=== PATIENT | female | born 2005 | race African-American/Black ===

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

== ENCOUNTER 2023-05-12 19:02 | Emergency (ER) | payer OTHER, SELFPAY | END 2023-05-12 19:05 | disposition left against medical advice (07) | DX: Z53.21 Procedure and treatment not carried out due to patient leaving prior to being seen by health care provider (principal) | CPT/HCPCS: 99199 ==

== ENCOUNTER 2023-07-05 10:38 | Emergency (ER) | payer OTHER, SELFPAY ==
[2023-07-05 10:39] VITALS: BP 114/74; PULSE 90; RESP 16; TEMP 36.4; O2SAT 100
[2023-07-05 11:12] LABS: Basophils Percent Auto 0.4 % (0.2-1.2); Eosinophils Absolute Auto 0.1 K/mm3 (0-0.3); Eosinophils Percent Auto 0.9 % (0-4.4); Hematocrit 41.7 % (37.0-47.0); Immature Granulocyte Absolute 0.02 K/mm3 (0.00-0.031); Immature Granulocyte Percent A 0.2 % (0-0.5); Lymphocytes Absolute Auto 2.08 K/mm3 (0.9-3.2); Lymphocytes Percent Auto 22.1 % (18.3-44.2); Mean Corpuscular HGB Conc 31.2 g/dl (32-36); Mean Corpuscular Hemoglobin 27.8 pg (26-34); Mean Corpuscular Volume 89.1 fl (80-100); Mean Platelet Volume 9.5 fl (7.4-10.4); Monocytes Absolute Auto 0.7 K/mm3 (0.1-0.6); Monocytes Percent Auto 7.9 % (2.6-8.5); Neutrophils Absolute Auto 6.5 K/mm3 (1.3-6.7); Neutrophils Percent Auto 68.5 % (45.5-73.1); Platelet Count Result 396 k/mm3 (150-375); Red Blood Count 4.68 M/mm3 (4.2-5.4); White Blood Count 9.4 K/mm3 (4.5-10.0)
[2023-07-05 11:16] LABS: Appearance Urine Clear (Clear); Bacteria Urine None Seen /hpf; Bilirubin Urine Negative (Negative); Blood Urine Negative (Negative); Color Urine Yellow (Yellow); Glucose Urine UA Negative (Negative); Ketones Urine Negative (Negative); Leukocyte Esterase Ur Trace LEU/UL (Negative); Nitrate Urine Negative (Negative); Non Pathogenic Casts 0-2; Protein Urine Negative (Negative); RBC Urine 0-2 /hpf (0-2); Specific Grav Ur 1.025 (1.001-1.035); Squamous Epithelial Cell Urine Occasional /hpf (Few); Urobilinogen Urine 0.2 mg/dL (<2.0); WBC Urine 0-5 /hpf; pH Urine 5.5 (5.0-9.0)
[2023-07-05 11:23] LABS: Add Urine Microscopic? YES
[2023-07-05 11:24] LABS: Alanine Aminotransferase 22 U/L (6-35); Albumin Level 4.7 g/dL (3.5-5.1); Alkaline Phosphatase 71 U/L (38-126); Anion Gap 5 mmol/L (8-16); Aspartate Amino Transferase 30 U/L (14-36); Bilirubin,Total 1.1 mg/dL (0.2-1.3); Blood Urea Nitrogen 11 mg/dL (7-17); Calcium 9.2 mg/dL (8.4-10.2); Carbon Dioxide 30 mmol/L (22-30); Chloride 105 mmol/L (98-107); Estimated CRCL calculation 87 ml/min; Estimated Glomerular Filt Rate > 60; Glucose 87 mg/dL (65-110); Lipase 60 U/L (23-300); Potassium 3.5 mmol/L (3.4-5.0); Sodium 140 mmol/L (137-145)
--- NOTE | 2023-07-05 11:24 | ED.NAVMDI ---
HPI - Nausea/Vomiting/Diarrhea General Chief complaint: Nausea/Vomiting/Diarrhea Stated complaint: Nausea,Vomiting,Diarrhea felt hot Time Seen by Provider: 07/05/23 10:53 History of Present Illness HPI Narrative: 18-year-old female reports for evaluation for nausea and vomiting since this morning. Patient states she woke up around 6 AM and has had 4 episodes of vomiting with 2 episodes of diarrhea. She states she is unable to eat anything without vomiting. States she felt warm earlier but did not take her temperature. Denies chest pain, shortness of breath, abdominal pain, cough or congestion, dysuria or hematuria, urinary frequency or urgency. States she was in bed last night feeling fine. Related Data Allergies Allergy/AdvReac Type Severity Reaction Status Date / Time No Known Allergies Allergy Verified 07/05/23 10:56 Review of Systems Review of Systems: CONSTITUTIONAL: Denies fever, chills EYES: Denies visual changes, redness, or discharge. ENT: Denies rhinorrhea, congestion, sore throat, or otalgia. CARDIOVASCULAR: Denies chest pain, palpitations, or edema. RESPIRATORY: Denies cough or dyspnea. GASTROINTESTINAL: See HPI GENITOURINARY: Denies dysuria or hematuria. SKIN: Denies rash or itching. MUSCULOSKELETAL: Denies back pain, joint pain, or myalgia. NEUROLOGIC: Denies headache, numbness, dizziness, or weakness. PSYCHIATRIC: Denies anxiety or depression. [facility] Past Medical History Medical History Healthy adult Social History Social History Social History: Denies use of drugs or alcohol Exam Narrative: GENERAL: Well-appearing, in no acute distress. Patient resting comfortably in exam bed. She is pleasant and conversational. HEAD: Normocephalic EYES: PERRLA ENT: Nares clear. Mucous membranes moist. Oropharynx without tonsillar hypertrophy exudate or other lesions. NECK: Supple. CHEST: No respiratory distress. Clear to auscultation, no adventitious breath sounds. HEART: Regular rate and rhythm. No murmur heard. Normal peripheral pulses. ABDOMEN: Soft, nontender, normal active bowel sounds. No CVA tenderness. No overlying skin changes. EXTREMITIES: Normal range of motion. No edema. SKIN: Warm, dry, no rash. NEURO: No focal deficits. Alert and oriented x3. PSYCH: Normal mood and affect. Course Vital Signs Vital signs: Vital Signs Temperature 97.5 F L 07/05/23 10:39 Pulse Rate 90 07/05/23 10:39 Respiratory Rate 16 07/05/23 10:39 Blood Pressure 114/74 07/05/23 10:39 Pulse Oximetry 100 07/05/23 10:39 Temperature 97.5 F L 07/05/23 10:39 Pulse Rate 90 07/05/23 10:39 Respiratory Rate 16 07/05/23 10:39 Blood Pressure 114/74 07/05/23 10:39 Pulse Oximetry 100 07/05/23 10:39 MDM - Nausea/Vomiting/Diarrhea MDM Narrative Medical decision making narrative: 18-year-old female reports for evaluation for nausea, vomiting and diarrhea since this morning. See HPI for further history. Vitals are stable and she is afebrile. She is well-appearing on exam. Abdomen is soft and nontender. Labs are largely unremarkable. test negative. UA not consistent with UTI. Patient received fluids and Zofran with improvement. She is tolerating p.o. intake in the ED. Plan to discharge her home with p.o. Zofran and close PCP follow-up. Strict ED return precautions discussed. She is agreeable with the plan verbalized understanding. Discharged in stable condition. Medical Records Attestation: I reviewed the patient's medical records. Lab Data Attestation: I reviewed the patient's lab results. 07/05/23 11:05 07/05/23 11:05 Labs: Lab Results 07/05/23 Range/Units 11:05 WBC 9.4 (4.5-10.0) K/mm3 RBC 4.68 (4.2-5.4) M/mm3 Hgb 13.0 (12.0-15.0) g/dL Hct 41.7 (37.0-47.0) % MCV 89.1 (80-100) fl MCH 27.8 (2
[2023-07-05] MEDS: ONDANSETRON INJ 4 MG/2 ML VIAL IV PUSH (12:02)
[2023-07-05] MEDS: SODIUM CHLORIDE 0.9% IV 1,000 ML 999 ML IV CONT (12:03)
== END 2023-07-05 13:05 | disposition home or self-care (01) ==
PROVIDERS: Emergency Provider Physician Assistant
DX: K52.9 Noninfective gastroenteritis and colitis, unspecified (principal)
CPT/HCPCS: 36415; 80053; 81001; 81025; 83690; 83735; 85025; 96374; 99284; J2405; J7030

== ENCOUNTER 2023-07-23 16:33 | Emergency (ER) | payer OTHER, SELFPAY ==
[2023-07-23 16:44] VITALS: BP 122/65; PULSE 80; RESP 16; TEMP 36.7; O2SAT 100
--- NOTE | 2023-07-23 18:23 | PC.NURSE ---
Pt called x2 for triage, no response.
== END 2023-07-23 19:20 | disposition left against medical advice (07) ==
LOC: ANHED 18:48
DX: R22.43 Localized swelling, mass and lump, lower limb, bilateral (principal)
CPT/HCPCS: 99199

== ENCOUNTER 2024-05-10 22:52 | Emergency (ER) | payer OTHER, SELFPAY ==
--- NOTE | ~2024-05-10 | CT_ITS ---
CT of the Abdomen and Pelvis: Indication: Abdominal pain Technique: 2.5 mm axial scans were obtained through the abdomen and pelvis following intravenous adm inistration of 100 cc of Omnipaque 350. Dose reduction technique was used on this scan by utilizing a utomated exposure control and iterative reconstruction technique. The dose-length product (DLP) was 6 58.67 mGy-cm. Findings: Scans through the lung bases are unremarkable. The liver, spleen, pancreas, gallbladder, and adrenal glands are within normal limits. There are patc hy areas of decreased parenchymal enhancement of both kidneys, right worse than left, compatible with bilateral pyelonephritis. No hydronephrosis or abscess. No evidence of aortic aneurysm. No lymphade nopathy. No bowel obstruction or bowel wall thickening. There is no evidence to suggest acute appendicitis. Images through the pelvis were performed. Urinary bladder unremarkable. No adnexal mass evident. Trac e free fluid present in the pelvis. Impression: Bilateral pyelonephritis. No hydronephrosis or abscess. Reviewed, dictated and finalized at [facility]. Impression: Bilateral pyelonephritis. No hydronephrosis or abscess.
[2024-05-10 22:57] VITALS: BP 133/85; PULSE 92; RESP 18; TEMP 36.4; O2SAT 100
[2024-05-11 00:01] LABS: Basophils Percent Auto 0.2 % (0.2-1.2); Eosinophils Absolute Auto 0.2 K/mm3 (0-0.3); Eosinophils Percent Auto 1.9 % (0-4.4); Hematocrit 42.1 % (37.0-47.0); Hemoglobin 13.7 g/dL (12.0-15.0); Immature Granulocyte Absolute 0.02 K/mm3 (0.00-0.031); Immature Granulocyte Percent A 0.2 % (0-0.5); Lymphocytes Absolute Auto 2.24 K/mm3 (0.9-3.2); Lymphocytes Percent Auto 26.4 % (18.3-44.2); Mean Corpuscular HGB Conc 32.5 g/dl (32-36); Mean Corpuscular Hemoglobin 28.7 pg (26-34); Mean Corpuscular Volume 88.3 fl (80-100); Mean Platelet Volume 9.5 fl (7.4-10.4); Monocytes Absolute Auto 0.8 K/mm3 (0.1-0.6); Monocytes Percent Auto 9.1 % (2.6-8.5); Neutrophils Absolute Auto 5.3 K/mm3 (1.3-6.7); Neutrophils Percent Auto 62.2 % (45.5-73.1); Platelet Count Result 280 k/mm3 (150-375); Red Blood Count 4.77 M/mm3 (4.2-5.4); Red Cell Distribution Width 12.8 % (11.5-14.5); White Blood Count 8.5 K/mm3 (4.5-10.0)
[2024-05-11 00:01] LABS: BEDSIDEPREGUCG Negative
[2024-05-11 00:02] LABS: BEDSIDEPREGUCG Negative
[2024-05-11 00:19] LABS: Alanine Aminotransferase 14 U/L (6-35); Albumin Level 4.3 g/dL (3.5-5.1); Alkaline Phosphatase 61 U/L (38-126); Anion Gap 7 mmol/L (4-12); Aspartate Amino Transferase 25 U/L (14-36); Bilirubin,Total 0.5 mg/dL (0.2-1.3); Blood Urea Nitrogen 12 mg/dL (7-17); Calcium 8.8 mg/dL (8.4-10.2); Carbon Dioxide 30 mmol/L (22-30); Chloride 103 mmol/L (98-107); Estimated CRCL calculation 77 ml/min; Estimated Glomerular Filt Rate > 60; Glucose 89 mg/dL (65-110); Lipase 76 U/L (23-300); Potassium 3.5 mmol/L (3.4-5.0); Sodium 140 mmol/L (137-145)
[2024-05-11 00:26] LABS: Add Urine Microscopic? YES; Appearance Urine Clear (Clear); Bacteria Urine None Seen /hpf; Bilirubin Urine Negative (Negative); Blood Urine Trace (Negative); Color Urine Yellow (Yellow); Glucose Urine UA Negative (Negative); Ketones Urine Negative (Negative); Leukocyte Esterase Ur Trace LEU/UL (Negative); Nitrate Urine Negative (Negative); Non Pathogenic Casts 0-2; Protein Urine Trace mg/dL (Negative); Specific Grav Ur 1.012 (1.001-1.035); Squamous Epithelial Cell Urine Occasional /hpf (Few); WBC Urine 0-5 /hpf (0-3); pH Urine 7.5 (5.0-9.0)
[2024-05-11] MEDS: ONDANSETRON INJ 4 MG/2 ML VIAL IV PUSH (00:48)
[2024-05-11] MEDS: KETOROLAC 15 MG/ML VIAL (*BKC) IV PUSH (00:48)
[2024-05-11] MEDS: SODIUM CHLORIDE 0.9% IV 1,000 ML 999 ML IV CONT (00:48)
[2024-05-11] MEDS: BUPivacaine HCL 0.25% PF 30 ML VIAL 10 ML INFILTRATE (01:42)
--- NOTE | 2024-05-11 02:21 | ED.GENADULT ---
HPI - General Adult General Chief complaint: Abdominal Pain Stated complaint: abd pain Time Seen by Provider: 05/10/24 23:51 History of Present Illness HPI narrative: This is a 19-year-old female presenting with 2 complaints. The 1st complaint is right-sided abdominal pain. Has been going on off the last 2 weeks. It is sharp and achy. It is nonradiating 9 out 10 intensity and comes and goes. She has never had pain like this before there are no exacerbating alleviating factors. It is associated with episode of nausea and vomiting. She notes no relation to food. She denies fevers chills chest pain difficulty breathing or diarrhea. No dysuria or vaginal discharge. Second complaint is a painful lump in her thigh. Patient has a history of pilonidal and axillary abscesses. She thinks she is developing another abscess. Related Data Allergies Allergy/AdvReac Type Severity Reaction Status Date / Time No Known Allergies Allergy Verified 07/05/23 10:56 [facility] Past Medical History Medical History Healthy adult Social History Social History Social History: Denies use of drugs or alcohol Exam Narrative: APPEARANCE: No apparent distress. Head: atraumatic. EYES: EOMI, NOSE: Atraumatic NECK: Trachea midline RESPIRATORY: No increased rate of breathing CARDIOVASCULAR: RRR, ABDOMINAL: Soft nontender no guarding rebound no CVA tenderness MUSCULOSKELETAl: No obvious deformities NEURO: Alert. Moving 4/4 extremities SKIN:: 1 cm x 2 cm fluctuant mass in the inside of her right thigh no surrounding cellulitis PSYCHIATRIC: Normal affect Course Vital Signs Vital signs: Vital Signs Temperature 97.6 F 05/10/24 22:57 Pulse Rate 92 05/10/24 22:57 Respiratory Rate 18 05/10/24 22:57 Blood Pressure 133/85 05/10/24 22:57 Pulse Oximetry 100 05/10/24 22:57 Oxygen Delivery Room Air 05/10/24 22:57 Temperature 97.6 F 05/10/24 22:57 Pulse Rate 92 05/10/24 22:57 Respiratory Rate 18 05/10/24 22:57 Blood Pressure 133/85 05/10/24 22:57 Pulse Oximetry 100 05/10/24 22:57 Oxygen Delivery Room Air 05/10/24 22:57 Procedures Abscess I/D lower extremity: Date of Incision: 05/11/24 Local Anesthetic: lidocaine 1% and with epi Amount of anesthesia used (mL): 5 Technique: incised with #11 blade and probed loculations Amount of fluid expressed (mL): 3 Irrigation: Yes Packing used?: none I&D Results: Pus and Blood Medical Decision Making MDM Narrative Medical decision making narrative: -Course: 19-year-old presenting with right upper quadrant pain. Laboratory studies all within normal limits. Urine not indicative of infection. CT was read by stat read as a patchy nephrogram of the right kidney consistent with pyelonephritis. She does not have right CVA tenderness, fevers a white count or white blood cells in her urine. Clinically the patient does not have pyelonephritis. Pain improved with pain medication. On re-evaluation vital signs still stable on abdominal exam is benign. She will be discharged follow-up with her primary care physician. Patient's abscess was drained. Patient follow-up with PCP. Given return precautions -DDX includes but is not limited to: Gallbladder pathology, gastroenteritis, gastritis, colitis, appendicitis, kidney stone, pyelonephritis -Co-morbidities complicating care: Recurrent abscesses -Independent interpretation of studies: Labs reviewed, imaging reviewed -Procedures: incision and drainage of a right groin abscess using 11 blade stab incision. Loculations were broken up with hemostat. Procedures tolerated well. -Interventions: Zofran, Toradol, 2L normal saline -Shared decision making / Disposition: Discharge -RX Motrin Tylenol Vital Signs Vital Signs: Vital Signs Temperature 97.6 F 05/10/24
[2024-05-11 04:01] VITALS: BP 137/74; PULSE 67; RESP 18; O2SAT 100
== END 2024-05-11 04:03 | disposition home or self-care (01) ==
PROVIDERS: Emergency Provider Emergency Medicine
DX: R10.11 Right upper quadrant pain (principal); L02.415 Cutaneous abscess of right lower limb
CPT/HCPCS: 10060; 36415; 74177; 80053; 81001; 81025; 83690; 85025; 96361; 96374; 96375; 99284; J1885; J2405; J7030; Q9967

== ENCOUNTER 2024-08-15 15:03 | Emergency (ER) | payer OTHER, SELFPAY ==
--- NOTE | ~2024-08-15 | US_ITS ---
EXAMINATION: US OB <= 14 weeks fetus INDICATION: 9w2d by LMP 06/11; r/o ectopic; no prior imaging TECHNIQUE: Sonography of the pelvis was performed by transabdominal techniques. COMPARISON: None. RESULT: Uterus: 9.8 x 7.1 x 7.6 cm. Anteverted. Homogenous myometrium. Intrauterine gestational sac: Single present. Yolk sac: 0.5 cm. Embryo: Single present. [place] rump length: 2.91 cm, corresponding gestational age 9 weeks, 5 days. Gestational heart rate: 161 bpm. Subgestational hematoma: Absent . Right ovary: 3.2 x 1.9 x 2.2 cm. Vascular flow is present. No adnexal mass. Left ovary: 3.3 x 1.0 x 1.8 cm. Vascular flow is present. No adnexal mass. Pelvis free fluid: None. IMPRESSION: Single, live intrauterine gestation. Estimated Gestational Age: 9 weeks, 5 days by crown rump length. VIDAL by ultrasound 03/15/2025. Mild tachycardia to 161 bpm. Reviewed, dictated and finalized at location K. LANGUAGE INTERPRETER IMPRESSION: Single, live intrauterine gestation. Estimated Gestational Age: 9 weeks, 5 days by crown rump length. VIDAL by ultras ound 03/15/2025. Mild tachycardia to 161 bpm.
[2024-08-15 15:12] VITALS: BP 139/68; PULSE 95; RESP 14; TEMP 36.6; O2SAT 100
[2024-08-15 17:58] VITALS: BP 131/82; PULSE 104; RESP 18; O2SAT 96
[2024-08-15 18:03] LABS: Basophils Percent Auto 0.3 % (0.2-1.2); Eosinophils Percent Auto 0.2 % (0-4.4); Hematocrit 42.8 % (37.0-47.0); Hemoglobin 14.4 g/dL (12.0-15.0); Immature Granulocyte Absolute 0.05 K/mm3 (0.00-0.031); Immature Granulocyte Percent A 0.4 % (0-0.5); Lymphocytes Percent Auto 13.8 % (18.3-44.2); Mean Corpuscular HGB Conc 33.6 g/dl (32-36); Mean Corpuscular Hemoglobin 28.7 pg (26-34); Mean Corpuscular Volume 85.4 fl (80-100); Monocytes Absolute Auto 0.7 K/mm3 (0.1-0.6); Monocytes Percent Auto 5.5 % (2.6-8.5); Neutrophils Absolute Auto 9.8 K/mm3 (1.3-6.7); Neutrophils Percent Auto 79.8 % (45.5-73.1); Platelet Count Result 364 k/mm3 (150-375); Red Blood Count 5.01 M/mm3 (4.2-5.4); Red Cell Distribution Width 13.5 % (11.5-14.5); White Blood Count 12.3 K/mm3 (4.5-10.0)
--- NOTE | 2024-08-15 18:12 | ED_ITS ---
HPI - General Adult General Chief complaint: Abdominal Pain <Gary Mares PA-C - Last Filed: 08/15/24 18:13> Stated complaint: abd pain <Gary Mares PA-C - Last Filed: 08/15/24 18:13> Time Seen by Provider: 08/15/24 17:45 <Gary Mares PA-C - Last Filed: 08/15/24 18:13> Focused HPI: This is a 19-year-old female who presents to the ED for chief complaint of abdominal pain over the past several days. Reports that she thinks she may be with last menstrual period being 06/16/2024. Reports that she does have pelvic pain and pressure as well as upper abdominal pain. Sometimes the pain radiates to flanks. Does not yet have a OB and this would be her 1st . Denies fevers, chills, vaginal discharge, concern for STD, vaginal bleeding, urinary symptoms GENERAL: Well-appearing, well-nourished, and in no acute distress. HEAD: Normocephalic, atraumatic. CHEST: Clear to auscultation. No respiratory distress. HEART: Regular rate and rhythm. NEURO: Alert and oriented x3. Patient screened in triage and initial orders placed. Additional care and disposition to be based upon diagnostic testing and treatment. <Gary Mares PA-C - Last Filed: 08/15/24 18:13> Source: patient <Gary Mares PA-C - Last Filed: 08/15/24 18:13> Mode of arrival: ambulatory <Gary Mares PA-C - Last Filed: 08/15/24 18:13> Limitations: no limitations <Gary Mares PA-C - Last Filed: 08/15/24 18:13> History of Present Illness HPI narrative: Agree with above with the following additions/Corrections. Patient reports left-sided abdominal pain in the upper and lower quadrants occurring for the past 1 week. She has had nausea but no vomiting. Denies diarrhea, constipation, or bleeding. She denies any vaginal bleeding or discharge though she does report vaginal pain. LMP 06/11/24 - 06/16/24. She endorses breast swelling and increased fatigue. She took a home test on 07/18/2024 when her menstrual period not begin. She otherwise has not seen OB Gyne in has never established with 1 previously. This would make her a . Last oral intake was today. She does not have an appetite. She is not on anticoagulation. She denies dysuria or hematuria although she has had urinary frequency. No fevers or chills. She has not been taking anything for pain at home. <Julianne Rosales MD - Last Filed: 08/17/24 16:04> Related Data Allergies/adverse reactions: Allergies Allergy/AdvReac Type Severity Reaction Status Date / Time No Known Allergies Allergy Verified 07/05/23 10:56 <Gary Mares PA-C - Last Filed: 08/15/24 18:13> [facility] Past Medical History Medical History: Medical History Healthy adult <Gary Mares PA-C - Last Filed: 08/15/24 18:13> Social History Social History: Social History Social History: Denies use of drugs or alcohol <Gary Mares PA-C - Last Filed: 08/15/24 18:13> Exam 2 Narrative: GENERAL: Well-appearing, well-nourished, and in no acute distress. HEAD: Normocephalic, atraumatic. EYES: Non injected, non icteric ENT: Nares clear, no rhinorrhea or epistaxis. NECK: Supple. CHEST: Speaking in full sentences. No respiratory distress. HEART: Regular rate and rhythm. . ABDOMEN: Soft, nondistended. Nontender to palpation throughout. No rigidity or guarding. Not peritoneal. EXTREMITIES: Normal range of motion. No lower extremity edema. SKIN: Warm, dry, no rash. NEURO: No focal deficits. Alert and oriented x3. PSYCH: Normal mood and affect. <Julianne Rosales MD - Last Filed: 08/17/24 16:04> Course Vital Signs Vital signs: Vital Signs Temperature 97.8 F 08/15/24 15:12 Pulse Rate 95 08/15/24 15:12 Respiratory Rate 14 08/15/24 15:12 Blood Pressure 139/68 08/15/24 15:12 Pulse Oximetry 100 08/15/24 15:12 Temperature 97.8 F 08/15/24 15:12 Pulse Rate 104 H 08/15/24 17:58 Respiratory Rate 18 08/15/24 17:58 Blood Pressure 131/82 08/15/24 17:58 Pulse Oximetry 96 08/15/24 17:58 <Gary Mares PA-C - Last Filed: 08/15/24 18:13> Vital Signs Temperature 97.8 F 08/15/24 15:12 Pulse Rate 95 08/15/24 15:12 Respiratory Rate 14 08/15/24 15:12 Blood Pressure 139/68 08/15/24 15:12 Pulse Oximetry 100 08/15/24 15:12 Temperature 97.8 F 08/15/24 15:12 Pulse Rate 104 H 08/15/24 17:58 Respiratory Rate 18 08/15/24 17:58 Blood Pressure 131/82 08/15/24 17:58 Pulse Oximetry 96 08/15/24 17:58 <Julianne Rosales MD - Last Filed: 08/17/24 16:04> Medical Decision Making MDM Narrative Medical decision making narrative: This is a 19 yo patient at 9weeks/2days gestational age by stated LMP 06/12/24 presenting with left sided abdominal pain of 1 weeks duration associated with nausea but no vomiting, fevers, chills, diarrhea. In the emergency department they are afebrile with vital signs within normal limits. DIFFERENTIAL DIAGNOSIS Considered ectopic (given have not determined IUP), spectrum of miscarriage/ (threatened, inevitable, incomplete, complete, septic) as well as causes of female-specific abdominal pain unrelated to (e.g., pelvic inflammatory disease with or without tubo-ovarian abscess, Pkxb-Vfwl-Svujky, UTI, ovarian torsion, etc.). Also considered causes of abdominal pain that are not gender-specific (e.g., appendicitis, volvulus, small bowel obstruction, mesenteric adenitis, nephrolithiasis, acute cholecystitis/choledocholithiasis and other biliary pathology, etc.). Patient well-appearing with normal vital signs. Patient is Rh negative and therefore will be given RhoGAM given she is having pelvic/vaginal pain in addition to abdominal pain. Will give her 1g Tylenol and f/u on CBC and CMP. Her workup was essentially WNL. Mild white count. No marked electrolyte abnormalities. No e/o renal injury. UA with evidence of possible infection. Patient does state that she took a test at home on 07/18/2024 which was positive. She took this when her menstrual period did not begin. She otherwise has not obtain imaging or seen an ship pilot dispatcher (does not have one). Serum beta hCG greater than 160,000. Given this is a of indeterminate location, will proceed with ultrasound imaging to rule out ectopic . Will also give acetaminophen and Zofran. She has bacteria on her urinalysis and given that she has urinary frequency, will treat. US shows 9 weeks, 5 days by crown rump length. VIDAL by ultrasound 03/15/2025. On reassessment, the patient appears well, and reports feeling. My suspicion for acute abdomen is quite low and she was given strict return precautions for vaginal bleeding fever (temperature above 100.4F) intractable pain, etc. She can f/u with OBGYN (contact information/referral given) and will be given a prescription for Tylenol and Colace. Patient also given vitamin Rx. All other questions answered, patient is amenable to plan. <Julianne Rosales MD - Last Filed: 08/17/24 16:04> Vital Signs Vital Signs: Vital Signs Temperature 97.8 F 08/15/24 15:12 Pulse Rate 95 08/15/24 15:12 Respiratory Rate 14 08/15/24 15:12 Blood Pressure 139/68 08/15/24 15:12 Pulse Oximetry 100 08/15/24 15:12 Temperature 97.8 F 08/15/24 15:12 Pulse Rate 104 H 08/15/24 17:58 Respiratory Rate 18 08/15/24 17:58 Blood Pressure 131/82 08/15/24 17:58 Pulse Oximetry 96 08/15/24 17:58 <Gary Mares PA-C - Last Filed: 08/15/24 18:13> Vital Signs Temperature 97.8 F 08/15/24 15:12 Pulse Rate 95 08/15/24 15:12 Respiratory Rate 14 08/15/24 15:12 Blood Pressure 139/68 08/15/24 15:12 Pulse Oximetry 100 08/15/24 15:12 Temperature 97.8 F 08/15/24 15:12 Pulse Rate 104 H 08/15/24 17:58 Respiratory Rate 18 08/15/24 17:58 Blood Pressure 131/82 08/15/24 17:58 Pulse Oximetry 96 08/15/24 17:58 <Julianne Rosales MD - Last Filed: 08/17/24 16:04> Lab Data Lab results reviewed: Yes I reviewed the patient's lab results. <Julianne Rosales MD - Last Filed: 08/17/24 16:04> Lab results narrative: Mild leukocytosis <Julianne Rosales MD - Last Filed: 08/17/24 16:04> Result diagrams: 08/15/24 17:57 08/15/24 17:57 <Gary Mares PA-C - Last Filed: 08/15/24 18:13> Labs: Lab Results 08/15/24 08/15/24 08/15/24 Range/Units 17:57 18:14 18:24 WBC 12.3 H (4.5-10.0) K/mm3 RBC 5.01 (4.2-5.4) M/mm3 Hgb 14.4 (12.0-15.0) g/dL Hct 42.8 (37.0-47.0) % MCV 85.4 (80-100) fl MCH 28.7 (26-34) pg MCHC 33.6 (32-36) g/dl RDW 13.5 (11.5-14.5) % Plt Count 364 (150-375) k/mm3 MPV 9.0 (7.4-10.4) fl Immature Gran % (Auto) 0.4 (0-0.5) % Neut % (Auto) 79.8 H (45.5-73.1) % Lymph % (Auto) 13.8 L (18.3-44.2) % [place] % (Auto) 5.5 (2.6-8.5) % Eos % (Auto) 0.2 (0-4.4) % Baso % (Auto) 0.3 (0.2-1.2) % Lymph # (Auto) 1.70 (0.9-3.2) K/mm3 [place] # (Auto) 0.7 H (0.1-0.6) K/mm3 Eos # (Auto) 0.0 (0-0.3) K/mm3 Baso # (Auto) 0.0 (0.0-0.1) K/mm3 Abs Immat Gran (auto) 0.05 H (0.00-0.031) K/mm3 Absolute Neuts (auto) 9.8 H (1.3-6.7) K/mm3 Absolute Nucleated RBC 0.000 (0.0-0.012) K/mm3 Nucleated RBC % 0.0 (0.0-0.2) % Sodium 135 L (137-145) mmol/L Potassium 3.6 (3.4-5.0) mmol/L Chloride 106 (98-107) mmol/L Carbon Dioxide 21 L (22-30) mmol/L Anion Gap 8 (4-12) mmol/L BUN 5 L D (7-17) mg/dL Creatinine 0.60 L (0.7-1.0) mg/dL Estim Creat Clear Calc 120 ml/min Estimated GFR > 60 (59 - ) Glucose 117 H (65-110) mg/dL Calcium 9.6 (8.4-10.2) mg/dL Total Bilirubin 0.7 (0.2-1.3) mg/dL Direct Bilirubin 0.0 (0-0.3) mg/dL AST 30 (14-36) U/L ALT 15 (6-35) U/L Alkaline Phosphatase 66 (38-126) U/L Total Protein 8.0 (6.3-8.2) g/dL Albumin 4.7 (3.5-5.1) g/dL Lipase 59 (23-300) U/L Beta HCG, Quant 264584.00 mIU/ML Urine Color Yellow (Yellow) Urine Appearance Clear (Clear) Urine pH 6.5 (5.0-9.0) Ur Specific [place] 1.027 (1.001-1.035) Urine Protein Trace (Negative) mg/dL Urine Glucose (UA) Negative (Negative) mg/dL Urine Ketones 2+ H (Negative) mg/dL Ur Blood (Man) Negative (Negative) Urine Nitrate Negative (Negative) Urine Bilirubin Negative (Negative) Urine Urobilinogen 1.0 (<2.0) mg/dL Leukocyte Esterase Rfl 1+ H (Negative) RUFINO/UL Urine RBC 3-5 H (0-2) /hpf Urine WBC 6-10 H (0-3) /hpf Ur Squamous Epith Cells Few (Few) /hpf Urine Bacteria 1+ H /hpf Urine Casts 0-2 POC Urine HCG, Qual Positive (Negative) Blood Type O Negative Antibody Screen Negative Screen TNP Baby's Blood Type Not Reportable Baby's TING Not Reportable Doses of RhIg Required 1 <Gary Mares PA-C - Last Filed: 08/15/24 18:13> Lab Results 08/15/24 08/15/24 08/15/24 Range/Units 17:57 18:14 18:24 WBC 12.3 H (4.5-10.0) K/mm3 RBC 5.01 (4.2-5.4) M/mm3 Hgb 14.4 (12.0-15.0) g/dL Hct 42.8 (37.0-47.0) % MCV 85.4 (80-100) fl MCH 28.7 (26-34) pg MCHC 33.6 (32-36) g/dl RDW 13.5 (11.5-14.5) % Plt Count 364 (150-375) k/mm3 MPV 9.0 (7.4-10.4) fl Immature Gran % (Auto) 0.4 (0-0.5) % Neut % (Auto) 79.8 H (45.5-73.1) % Lymph % (Auto) 13.8 L (18.3-44.2) % [place] % (Auto) 5.5 (2.6-8.5) % Eos % (Auto) 0.2 (0-4.4) % Baso % (Auto) 0.3 (0.2-1.2) % Lymph # (Auto) 1.70 (0.9-3.2) K/mm3 [place] # (Auto) 0.7 H (0.1-0.6) K/mm3 Eos # (Auto) 0.0 (0-0.3) K/mm3 Baso # (Auto) 0.0 (0.0-0.1) K/mm3 Abs Immat Gran (auto) 0.05 H (0.00-0.031) K/mm3 Absolute Neuts (auto) 9.8 H (1.3-6.7) K/mm3 Absolute Nucleated RBC 0.000 (0.0-0.012) K/mm3 Nucleated RBC % 0.0 (0.0-0.2) % Sodium 135 L (137-145) mmol/L Potassium 3.6 (3.4-5.0) mmol/L Chloride 106 (98-107) mmol/L Carbon Dioxide 21 L (22-30) mmol/L Anion Gap 8 (4-12) mmol/L BUN 5 L D (7-17) mg/dL Creatinine 0.60 L (0.7-1.0) mg/dL Estim Creat Clear Calc 120 ml/min Estimated GFR > 60 (59 - ) Glucose 117 H (65-110) mg/dL Calcium 9.6 (8.4-10.2) mg/dL Total Bilirubin 0.7 (0.2-1.3) mg/dL Direct Bilirubin 0.0 (0-0.3) mg/dL AST 30 (14-36) U/L ALT 15 (6-35) U/L Alkaline Phosphatase 66 (38-126) U/L Total Protein 8.0 (6.3-8.2) g/dL Albumin 4.7 (3.5-5.1) g/dL Lipase 59 (23-300) U/L Beta HCG, Quant 317590.00 mIU/ML Urine Color Yellow (Yellow) Urine Appearance Clear (Clear) Urine pH 6.5 (5.0-9.0) Ur Specific [place] 1.027 (1.001-1.035) Urine Protein Trace (Negative) mg/dL Urine Glucose (UA) Negative (Negative) mg/dL Urine Ketones 2+ H (Negative) mg/dL Ur Blood (Man) Negative (Negative) Urine Nitrate Negative (Negative) Urine Bilirubin Negative (Negative) Urine Urobilinogen 1.0 (<2.0) mg/dL Leukocyte Esterase Rfl 1+ H (Negative) RUFINO/UL Urine RBC 3-5 H (0-2) /hpf Urine WBC 6-10 H (0-3) /hpf Ur Squamous Epith Cells Few (Few) /hpf Urine Bacteria 1+ H /hpf Urine Casts 0-2 POC Urine HCG, Qual Positive (Negative) Blood Type O Negative Antibody Screen Negative Screen TNP Baby's Blood Type Not Reportable Baby's TING Not Reportable Doses of RhIg Required 1 <Julianne Rosales MD - Last Filed: 08/17/24 16:04> Imaging Data Radiologist's impression: Single, live intrauterine gestation. Estimated Gestational Age: 9 weeks, 5 days by crown rump length. VIDAL by ultrasound 03/15/2025. Mild tachycardia to 161 bpm. <Julianne Rosales MD - Last Filed: 08/17/24 16:04> Discharge Plan Discharge Clinical Impression: Abdominal pain during in first trimester, Intrauterine , Leukocytosis, Bacteriuria during , Nausea/vomiting in <Gary Mares PA-C - Last Filed: 08/15/24 18:13> Patient Disposition: Home, Self-Care <Gary Mares PA-C - Last Filed: 08/15/24 18:13> Condition: Stable <Gary Mares PA-C - Last Filed: 08/15/24 18:13> Instructions: Antibiotic Form, Nausea and Vomiting in (ED), (ED), Abdominal Pain in (ED), Urinary Tract Infection in (ED), at 7 to 10 Weeks (ED) <Gary Mares PA-C - Last Filed: 08/15/24 18:13> Additional Instructions: You are 9 weeks, 5 days with an estimated due date by ultrasound of 03/15/2025. vitamins have been prescribed. Acetaminophen/Tylenol is safe to take during but avoid taking NSAID medications like ibuprofen/naproxen /Advil/Aleve/Motrin. You did have evidence of bacteria in your urine. You received your 1st dose of antibiotic in the emergency department with the rest of the course prescribed. If you are constipated you can also use the prescribed colace. Follow up with ObGyn. The name of an cross cut sawyer doctor is listed below since you do not have one. Return to the emergency department with any new or worsening symptoms such as pain not responding to the medication, fever greater than 100.4? F, vaginal bleeding saturating 2 pads an hour for 2-3 hours, etc. <Gary Mares PA-C - Last Filed: 08/15/24 18:13> Patient Language: Congolese <Gary Mares PA-C - Last Filed: 08/15/24 18:13> Prescriptions: New PNV cmb#[id number] fumarate-FA [] 28 mg iron- 800 mcg tablet 1 tablet PO DAILY Qty: 30 0RF acetaminophen 500 mg capsule 1,000 mg PO Q6H PRN (Reason: pain) Qty: 30 0RF cephalexin 500 mg capsule 500 mg PO Q8H 5 Days Qty: 14 0RF Rx Instructions: received first dose in the ED 12/9 PM docusate sodium [Colace] 100 mg capsule 100 mg PO DAILY PRN (Reason: constipation) Qty: 14 0RF No Action ondansetron 4 mg tablet,disintegrating 4 mg PO Q8H Qty: 20 0RF ibuprofen 800 mg tablet 800 mg PO TID PRN (Reason: pain) 7 Days Qty: 21 0RF acetaminophen 500 mg tablet 1,000 mg PO TID PRN (Reason: lynda) 7 Days Qty: 42 0RF <Gary Mares PA-C - Last Filed: 08/15/24 18:13> Follow-up/Referrals: Mina Martinez MD [Physician] - (GROUNDWATER MONITORING TECHNICIAN) PHYSICIAN,DEPARTMENTAL BUYER [Primary Care Provider] - <Gary Mares PA-C - Last Filed: 08/15/24 18:13> Stand Alone Forms: Work/School Release IP <Gary Mares PA-C - Last Filed: 08/15/24 18:13> Time of Disposition: 21:24 <Gary Mares PA-C - Last Filed: 08/15/24 18:13> 21:24 <Julianne Rosales MD - Last Filed: 08/17/24 16:04>
[2024-08-15 18:15] LABS: BEDSIDEPREGUCG Positive (Negative)
[2024-08-15 18:20] LABS: Alanine Aminotransferase 15 U/L (6-35); Albumin Level 4.7 g/dL (3.5-5.1); Alkaline Phosphatase 66 U/L (38-126); Anion Gap 8 mmol/L (4-12); Aspartate Amino Transferase 30 U/L (14-36); Bilirubin,Total 0.7 mg/dL (0.2-1.3); Blood Urea Nitrogen 5 mg/dL (7-17); Calcium 9.6 mg/dL (8.4-10.2); Carbon Dioxide 21 mmol/L (22-30); Chloride 106 mmol/L (98-107); Estimated CRCL calculation 120 ml/min; Estimated Glomerular Filt Rate > 60; Glucose 117 mg/dL (65-110); Lipase 59 U/L (23-300); Potassium 3.6 mmol/L (3.4-5.0); Sodium 135 mmol/L (137-145)
[2024-08-15 18:43] LABS: Add Urine Microscopic? YES; Appearance Urine Clear (Clear); Bacteria Urine 1+ /hpf; Bilirubin Urine Negative (Negative); Blood Urine Negative (Negative); Color Urine Yellow (Yellow); Glucose Urine UA Negative (Negative); Ketones Urine 2+ mg/dL (Negative); Leukocyte Esterase Ur 1+ LEU/UL (Negative); Nitrate Urine Negative (Negative); Non Pathogenic Casts 0-2; Protein Urine Trace mg/dL (Negative); Specific Grav Ur 1.027 (1.001-1.035); Squamous Epithelial Cell Urine Few /hpf (Few); pH Urine 6.5 (5.0-9.0)
[2024-08-15] MEDS: ACETAMINOPHEN 500 MG TABLET 1000 MG PO (20:08)
[2024-08-15] MEDS: CEPHALEXIN 500 MG CAPSULE PO (20:53)
[2024-08-15] MEDS: RHO(D) IMMUNE GLOBULIN 300 MCG/2 ML SYRINGE 50 MCG IM (21:33)
== END 2024-08-15 21:52 | disposition home or self-care (01) ==
PROVIDERS: Physician Assistant; Emergency Provider Student in an Organized Health Care Education/Training Program
DX: O26.891 Other specified pregnancy related conditions, first trimester (principal); R10.9 Unspecified abdominal pain; R82.71 Bacteriuria; O21.9 Vomiting of pregnancy, unspecified; O99.891 Other specified diseases and conditions complicating pregnancy; D72.829 Elevated white blood cell count, unspecified; Z3A.09 9 weeks gestation of pregnancy
CPT/HCPCS: 36415; 76801; 80048; 80076; 81001; 81025; 83690; 84702; 85025; 85461; 86850; 86900; 86901; 87086; 90384; 96372; 99284; A9270; J2790

== ENCOUNTER 2025-04-01 04:04 | Emergency (ER) | payer OTHER, SELFPAY ==
--- OUTSIDE RECORDS SUMMARY | 2025-04-01 04:06 | XMS_ITS | Referral Summary ---
Author Organization [facility] Address [address] [place] [address] Care Team Providers Care Car Storer Name Role Phone Pcp-Unable To Interview, Did Not Encounter Pt Pr imary Care Provider Allergies Active Allergy Reactions Criticality Noted Date Comments Bee Stings Angioedema,Rash/Hives/Urticaria High 01/06 Medications lidocaine (LIDODERM) 5 % TOP PtMd patch Apply 1 patch topically daily. Use as directed. Application Site: Low back 30 patch Active Social History Tobacco Use Types Packs/Day Years Used Date Smoking Tobacco: Never Assessed Housing Stability Answer Date Recorded Mortgage Payment Concerns? Not on file 01/26 [address] of [address] Lived in the Last Year Not on f ile 01/26/2023 Unstable Housing? Not on file 01/26/2023 Comments No Sex and Gender Information Value Date Recorded Sex Assigned at Not on file Legal Sex Female 8:19 PM CDT Gender Identity Not on file Sexual Orientation Not on file Last Filed Vital Signs Vital Sign Reading Time Taken Comments Blood Pressure 120/68 01/26/2023 8:29 PM CDT Pulse 84 01/26/2023 8:29 PM CDT Temperature 36.6 C (97.8 F) 01/26/2023 8:29 PM CDT Respiratory Rate 16 01/26/2023 8:29 PM CDT Oxygen Saturation 99% 01/26/2023 8:29 PM CDT Inhaled Oxygen Concentration - - Weight 68.9 kg (152 lb) 01/26/2023 8:29 PM CDT Height 157.5 cm (5' 2) 01/26/2023 8:29 PM CDT Body Mass Index 27.8 01/26/2023 8:29 PM CDT Plan of Treatment Not on file Insurance [place] [employer] [facility] [place] [address] [place] [address] MEDICAID Care Teams Car Storer Relationship Specialty Start Date End Date Pcp-Unable To Interview, Did Not Encounter, PT [address] [place] [address] PCP - General 01/26/23
--- OUTSIDE RECORDS SUMMARY | 2025-04-01 04:06 | XMS_ITS | Encounter Summary ---
Author Organization [facility] Address [address] [place] [address] Care Team Providers Care Produce Wrapper Name Role Phone Renan Mendez MD Primary Care Provider +1- [phone] Encounter Details Date Type Department Care Team ([facility] st Contact Info) Description 09/06/2021 Transcribed Order Critical access hospital Patient Access [address] [place], [place] [id number] Zacarias Suh MD [address] [id number] Infected pilonidal cyst (Primary Dx) Social History Tobacco Use Types Packs/Day Years Used Date Smoking Tobacco: Never Smokeless Tobacco: Never Alcohol Use Standard Drinks/Week Comments No 0 (1 standard drink = 0.6 oz pur e alcohol) Sex and Gender Information Value Date Recorded Sex Assigned at Not on file Gender Identity Not on file Sexual Orientation Not on file Job Start Date Occupation Industry Not on file Not on file Not on file COVID-19 Exposure Response Date Recorded In the last month, have you been in contact with someone who was confirmed or suspected to have Coronavirus / COVID-19? No / Unsure 08/29/2021 9:51 AM CERTIFIED PEST CONTROL TECHNICIAN documented as of this encounter Functional Status Functional Status Response Date of Assess ment Is the patient deaf or do th ey have serious difficulty hearing? No 05/25/2016 Is the patient blind, or do they have serious difficulty seeing even when wearing glasses? No 05/25/2016 Does the patient have seriou s difficulty walking or climbing stairs? No 05/25/2016 Does the patient have difficulty dressing or bat hawk? No 05/25/2016 Does the patient have diffic ulty completing errands alone because of a physical, mental, or emotional condition? No 05/25/2016 Cognitive Status Response Date of Assessm ent Does the patient have seriou s difficulty concentrating, remembering, or making decisions because of a physical, mental, or emotional condition? No 05/25/2016 documented as of this encounter Plan of Treatment Not on file documented as of this encounter Results * (ABNORMAL) PT/INR (09/06/2021 8:37 AM CERTIFIED PEST CONTROL TECHNICIAN) Prothrombin Time 14.4(H) 10.1 - 13.1 sec *[facility] INR 1.3(H) 0.9 - 1.1 *[facility] Comment: INR: 2.0-3.0 CONVENTIONAL ANTICOAGULATION INR: 2.5-3.5 INTENSIVE ANTICOAGULATION FOR ADDITIONAL INFORMATION REGARDING SPECIFIC CLINICAL SCENARIOS, DURATION OF ANTICOAGULANT THERAPY AND COMBINATION THERAPY WITH OTHER ANTICOAGULANTS, PLEASE REFER TO THE CITIZEN OF [place] COLLEGE OF CHEST PHYSICIANS EVIDENCE-BASED CLINICAL PRACTICE GUIDELINES AVAILABLE AT: [email or web address] Performed at [facility] Blood (Blood) 09/06/2021 8:3 7 AM CERTIFIED PEST CONTROL TECHNICIAN 09/06/2021 8:41 AM CERTIFIED PEST CONTROL TECHNICIAN Zacarias Suh MD LAB BLOOD ORDERABLES *[facility] * (ABNORMAL) CBC Complete Blood Count & Diff (09/06/2021 8:37 AM CERTIFIED PEST CONTROL TECHNICIAN) WBC 8.0 4.0 - 11.0 k/mm cu *[facility]-([facility] Platelets 491(H) 150 - 450 k/mm cu *[facility] RBC 4.58 3.63 - 5.04 m/mm cu *[facility] Hemoglobin 13.3 12.0 - 15.3 g/dL *[facility] Hematocrit 38.9 34.7 - 45.1 % *LAB-([facility] MCV 84.9 80.0 - 100.0 fL *LAB-([facility] MCH 29.1 26.0 - 34.0 pg *LAB-([facility] MCHC 34.2 32.5 - 35.8 % *LAB-([facility] RDW 12.7 11.9 - 15.9 % *LAB-([facility] MPV 7.0 6.8 - 10.2 fL *LAB-([facility] Neutrophils % 66.9 % *LAB-( [facility] Lymphocytes % 23.4 % *LAB-( [facility] Monocytes % 8.2 % *LAB-([facility] Eosinophils % 1.0 % *LAB-( [facility] Basophils % 0.5 % *[facility]-([facility] Neutrophils Absolute 5.3 1.7 - 7.7 k/mm cu *LAB-([facility] Lymphocytes Absolute 1.9 0.6 - 3.4 k/mm cu *LAB-([facility] Monocytes Absolute 0.7 0.3 - 1.0 k/mm cu *LAB-([facility] Eosinophils Absolute 0.1 0 - 0.5 k/mm cu *LAB-([facility] Basophils Absolute 0.0 Performed at [facility] 0 - 0.2 k/mm cu *LAB-([facility] Blood (Blood) 09/06/2021 8:3 7 AM CERTIFIED PEST CONTROL TECHNICIAN 09/06/2021 8:41 AM CERTIFIED PEST CONTROL TECHNICIAN Zacarias Suh MD LAB BLOOD ORDERABLES *[facility]-([facility] * Basic Metabolic Panel ([facility]) (09/06/2021 8:37 AM CERTIFIED PEST CONTROL TECHNICIAN) Glucose 95 70 - 99 mg/dL *LAB-([facility]) [facility] BUN 8 7 - 25 mg/dL *LAB-([facility]) [facility] Creatinine 0.79 0.5 - 1.2 mg/dL *LAB-([facility]) [facility] Sodium 140 133 - 144 mmol/L *LAB-([facility]) [facility] Potassium 3.7 3.5 - 5.1 mmol/L *[facility]-([facility] Chloride 104 98 - 107 mmol/L *LAB-([facility] CO2 29 21 - 31 mmol/L *LAB-([facility] Anion Gap 7 6.2 - 14.7 mmol/L *LAB-([facility]) [facility] BUN/Creatinine Ratio 10.1 6.0 - 20.0 *LAB-([facility]) [facility] Calcium 9.6 8.6 - 10.3 mg/dL *LAB-([facility] GFR MDRD Non Af Amer >60 >60 mL/min/1.7 3m *LAB-([facility] GFR MDRD Af Amer >60 >60 mL/min/1.7 3m *LAB-([facility]) [facility] Comment:Performed at [facility] Blood (Blood) 09/06/2021 8:3 7 AM CERTIFIED PEST CONTROL TECHNICIAN 09/06/2021 8:41 AM CERTIFIED PEST CONTROL TECHNICIAN Zacarias Suh MD LAB BLOOD ORDERABLES *LAB([facility]) [facility] documented in this encounter Visit Diagnoses Diagnosis Infected pilonidal cyst- Primary Pilonidal cyst without mention of abscess documented in this encounter Care Teams Produce Wrapper Relationship Specialty Start Date End Date Renan Mendez MD PCP - General Family Medicine 03/05/17 documented as of this encounter
--- OUTSIDE RECORDS SUMMARY | 2025-04-01 04:06 | XMS_ITS | Clinical Summary ---
Author Organization [facility] Address [address] [place] [address], [address] Care Team Providers Care Hog Grader Name Role Phone Unavailable Primary Care Provider Unavailabl e Social History Tobacco Use Types Packs/Day Years Used Date Smoking Tobacco: Never Assessed Sex and Gender Information Value Date Recorded Sex Assigned at Not on file Gender Identity Not on file Sexual Orientation Not on file Plan of Treatment Not on file
--- OUTSIDE RECORDS SUMMARY | 2025-04-01 04:06 | XMS_ITS | Encounter Summary ---
Author Organization [facility] Address [address] [place] [address] Care Team Providers Care Personal Chef Name Role Phone Renan Mendez MD Primary Care Provider +1- [phone] Encounter Details Date Type Department Care Team (Late st Contact Info) Description 09/25/2021 Procedure Pass [facility] Periop Services [address] [place] [address] Social History Tobacco Use Types Packs/Day Years [...] have Coronavirus / COVID-19? No / Unsure 09/25/2021 10:03 AM SUMMER NANNY documented as of this encounter Functional Status [...] on file documented as of this encounter Visit Diagnoses Not on filedocumented in this encounter Care Teams Personal Chef Relationship Specialty Start Date End Date Renan Mendez MD PCP - General Family Medicine 03/05/17 documented as of this encounter
--- OUTSIDE RECORDS SUMMARY | 2025-04-01 04:06 | XMS_ITS | Clinical Summary ---
Author Organization [facility] Address [address] [place] [address] Care Team Providers Care Glass Products Inspector Name Role Phone Renan Mendez MD Primary Care Provider +1- [phone] Source Comments [facility] is the largest [facility] system based in [place]. We offer more than 150 locations around the [facility], in communities large and small, so health care access is convenient. With 19 [facility] and [facility] hospitals, over 25 long-term care and [place] health care facility facilities, dozens of physician offices and health centers, home care, hospice, behavioral health services and more. Currently six of our Hospitals are live on the [facility], they are: [facility] Allergies No known active allergies Medications Medication Sig Dispensed Refills Start Date End Date Status cephALEXin (KEFLEX) 500 MG capsule TAKE 1 CAPSULE BY MOUTH THREE TIMES DAILY FOR 7 DAYS 04/22/2021 Active Active Problems Problem Noted Date Diagnosed Date Perirectal cellulitis with abscess 05/21/2016 Overview (05/25/2016): Stable. S/P I&D POD#4. Most likely cellulitis, associated with soft tissue abscess. (no abrasions present/trauma +). WBC down trending. Wound culture: gram positive cocci in pairs strep viridans group no sensitivity will follow. MRSA negative. Blood culture negative x2 day. anaerobic cultures pending mixed culture being isolated -D/C IV medication per Dr. Robert weber -Cephalexin 500mg TID Per ID recommendations. -Tylenol for fevers PRN -Pain management: Bowie (5/325mg) PO q4h PRN ( will most like D/C with discharge) -ibuprofen 400mg PO q6h PRN -General Diet -Cleared by Dr. Mcmahon (surgery) for discharge. -Per Dr. Joanna Christie recommendation to switch on PO antibiotics Assessment & Plan (05/28/2016 12:24 PM CDT): Resolving. S/P I&D on 05/21/16. Continuing Cephalexin 500 mg TID. - Advised perineal hygiene. - Advised completion of antibiotics to complete 10 days as recommended by ID. - Follow up as needed School physical exam 04/26/2015 Assessment & Plan (05/01/2015 12:40 AM CDT): Healthy 9 year old female child 1. Anticipatory guidance discussed. Mother provided with copy of [facility] Department of Health Services Certificate of Child Health Exam Gave handout on well-child issues at this age. Specific topics reviewed: bicycle helmets, chores and other responsibilities, drugs, ETOH, and tobacco, importance of regular dental care, importance of regular exercise, importance of varied diet, library card; limiting TV, media violence, minimize junk food and puberty. 2. Weight management: The patient was counseled regarding nutrition and physical activity. 3. Immunizations today: per orders: HPV 1, Meningococcal 1, TDAP 1 History of previous adverse reactions to immunizations? no 4. Follow-up visit in 1 year for next well child visit, or sooner as needed. 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 WBC normal of 8.7 ----- Sepsis 05/21/2016 05/22/2016 Overview (05/22/2016): Stable. Met Sepsis criteria per hospital protocol upon admission (fever of 100.6 F, HR 106, RR 20, WBC 14.7) and a source of infection (furuncle). Vitals currently stable, afebrile. Pt received Clindamycin 600 mg IV in ED, and continues with ceftrioxane and vancomycin IV. - U/A & Urine Cx ordered - Monitor s/s of severe sepsis - Vitals q 4 hrs - Strict I/O's - Fluids: NS 0.9% at 100 mL/hr - ID on consult ----- Immunizations Name Administration Dates Next Due DTaP 02/09/2008, 5,01/10/2004,09/19,2003 HPV Quadrivalent 04/26/2015 Hepatitis A PED/ADOLESCENT 02/09/2008,04/30/2006 Hepatitis B Ped 01/10/2004,2003,2003 HiB (PRP-T) 07/19/2004, 4,2003,06/29 IPV 02/09/2008, 4,2003,06/29 Influenza Quadrivalent PF 05/28/2016 MENACTRA MENINGOCOCCAL MCV4P 04/26/2015 MMR 02/09/2008,05/21/2004 PPD Test 02/09/2008,12/16/2004 Pneumococcal Conjugate 13-Va lent ([id number]) 02/09/2008,05/21/2004,01/10/2004,09/19,2003 Varicella 02/11/2008 tdap 04/26/2015 Family History Medical History Relation Name Comments Diabetes Maternal Aunt Cancer Maternal Grandfather Diabetes Maternal Grandfather Relation Name Status Comments Maternal Aunt Maternal Grandfather Social History Tobacco Use Types Packs/Day Years [...] file Not on file Not on file Last Filed Vital Signs Vital Sign Reading Time Taken Comments Blood Pressure 108/65 10/10/2021 10:57 AM TRANSPORT ANALYST Pulse 93 10/10/2021 12:31 PM TRANSPORT ANALYST Temperature 37.3 C (99.1 F) 10/10/2021 10:57 AM TRANSPORT ANALYST Respiratory Rate 18 10/10/2021 12:31 PM TRANSPORT ANALYST Oxygen Saturation 100% 10/10/2021 12:31 PM TRANSPORT ANALYST Inhaled Oxygen Concentration - - Weight 61.2 kg (135 lb) 10/10/2021 10:57 AM TRANSPORT ANALYST Height 154.9 cm (5' 1) 10/10/2021 10:57 AM TRANSPORT ANALYST Body Mass Index 25.51 10/10/2021 10:57 AM TRANSPORT ANALYST Plan of Treatment Health Maintenance Due Date Last Done Comments DEPRESSION SCREENING 1 YEAR 2015 HIV SCREENING 2018 CHLAMYDIA SCREENING 2019 Lipid Panel 2023 PAP Smear (Cervical Cancer Screening) 2024 04/21/2021 COVID-19 VACCINATION ( season) 2024 12/29/2020, 12/08/2020 DTAP,TDAP AND TD VACCINES (2 - Td or Tdap) 04/26/2025 04/26/2015, 02/09/2008, 12/16/2004, Additional history exists Influenza Vaccine (#1) 2025 05/28/2016 RSV Vaccine Patients 60 Years and Older (1 - 1-dose 75+ series) 2078 Pneumococcal Vaccine: Peds (0-5 Yrs) and At-Risk (6-64 Yrs) Completed 02/09/2008, 05/21/2004, 05/21/2004, Additional history exists HPV VACCINATION Completed 01/16/2018, 04/26/2015 RSV Vaccine Pediatric Patients under 20 months Aged Out No longer eligi merry based on patient's age to complete this topic Advance Directives * Full Code (Latest Code Status on File) Date Activated Date Inactivated Comments 05/21/2016 9:55 PM 05/25/2016 10:16 PM * Full Code Date Activated Date Inactivated Comments 05/21/2016 9:38 PM 05/21/2016 9:55 PM Care Teams Glass Products Inspector Relationship Specialty Start Date End Date Renan Mendez MD PCP - General Family Medicine 03/05/17
--- OUTSIDE RECORDS SUMMARY | 2025-04-01 04:06 | XMS_ITS | Clinical Summary ---
Author Organization [facility] Address [address] [place] [address] Care Team Providers Care Semiconductor Packages Platemaker Name Role Phone Pcp-Unable To Interview, Did [...] 01/26/2023 8:29 PM CDT Plan of Treatment Health Maintenance Due Date Last Done Comments HIV Screening 2003 Hepatitis C Screening 2003 Screen for Cervical Cancer 2003 HPV Vaccines (1 - 3-dose series) 2018 Chlamydia and Gonorrhea Screening 2019 Meningococcal B (1 of 2 - Standard) 2019 DTaP,Tdap and Td Vaccines (1 - Tdap) 2024 COVID-19 Vaccine (1 - 2023-2 5 season) 2024 Influenza Vaccine (#1) 2025 Pneumococcal 7-64 Aged Out No longer eligible based on patient's age to complete this topic RSV Vaccine (Pediatric) Aged Out No l onger eligible based on patient's age to complete this topic Insurance MEDICAID Care Teams Semiconductor Packages Platemaker Relationship Specialty Start Date End Date Pcp-Unable To Interview, Did Not Encounter, PT [address] [place] [address] PCP - General 01/26/23
[2025-04-01 04:28] VITALS: BP 113/78; PULSE 89; RESP 16; TEMP 36.7; O2SAT 98
--- NOTE | 2025-04-01 06:06 | ED_ITS ---
HPI - Skin/Abscess/Foreign Bdy General Chief complaint: Skin/Abscess/Foreign Body Stated complaint: lump under boob Time Seen by Provider: 04/01/25 05:32 Source: patient Mode of arrival: ambulatory Limitations: no limitations History of Present Illness HPI narrative: Patient presents with concern for a rash. She has noticed small raised lumps/dots all over her body but particularly her arms and near her groin. She is also complainign of a painful rash underneath her breasts, present for the past 2-3 days. No new soaps/detergents/meds. 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 No vaginal discharge, dysuria, hematuria. THought the lesions near her groin were due to ingrown hairs. Areas are itchy and painful but not draining and no fevers/chills. Denies any tight bras. No medications taken for pain or itching. On oral control. She has a PCP back home in [place] where she is headed back to today. History of acne but otherwise no dermatologic conditions, does not see a laborer bituminous paving. Related Data Allergies Allergy/AdvReac Type Severity Reaction Status Date / Time No Known Allergies Allergy Verified 04/01/25 04:30 [facility] Past Medical History Medical History Payton's palsy [facility] Social History Social History Social History: Denies use of drugs or alcohol Smoking status: Never smoker Second hand tobacco smoke exposure: No Alcohol intake: current Alcohol use details: social Substance use: never Substance use type: does not use Do You Feel Safe in your Home?: Yes Lack of Transportation: No Lack of Food: Never True Current Housing: I Have Housing Concerned About Future Housing: No Difficulty Paying Gas/Electric Bills: No Difficulty Paying for Meds: No Currently Unemployed: No Education: High School Diploma/GED Living arrangements: other Additional living arrangements comments: single Occupation/Education: occupation Additional occupation/education comments: [employer] driver Gender identity (if verbalized by the patient): Female Sexual Orientation (if Verbalized by the Patient): Straight or Heterosexual Exam Narrative: GENERAL: Well-appearing, well-nourished, and in no acute distress. HEAD: Normocephalic, atraumatic. EYES: Non injected, non icteric ENT: Nares clear, no rhinorrhea or epistaxis. Gross auditory acuity intact. NECK: Supple. No meningismus. CHEST: Speaking in full sentences. No respiratory distress. HEART: Regular rate and rhythm. . ABDOMEN: Soft, nondistended. No rigidity or guarding. Not peritoneal EXTREMITIES: Normal range of motion. No lower extremity edema. SKIN: Warm, dry. Small pustules overlying arms. Hyperpigmented small raised lesions overlying mons pubis but not at vulva. Areas of erythema and mild skin breakdown under bilateral breasts, particularly medial aspects but without signs of infection. None of the areas are vesicles , or draining. None indurated. No ecchymosis. NEURO: No focal deficits. Alert and oriented. Answering questions. Following commands. Normal speech without aphasia or dysarthria. PSYCH: Normal mood and affect. Course Vital Signs Vital signs: Vital Signs Temperature 98.0 F 04/01/25 04:28 Pulse Rate 89 04/01/25 04:28 Respiratory Rate 16 04/01/25 04:28 Blood Pressure 113/78 04/01/25 04:28 Pulse Oximetry 98 04/01/25 04:28 Oxygen Delivery Room Air 04/01/25 04:28 Temperature 98.0 F 04/01/25 04:28 Pulse Rate 89 04/01/25 04:28 Respiratory Rate 16 04/01/25 04:28 Blood Pressure 113/78 04/01/25 04:28 Pulse Oximetry 98 04/01/25 04:28 Oxygen Delivery Room Air 04/01/25 04:28 MDM - Skin/Abscess/Foreign Bdy MDM Narrative Medical decision making narrative: Patient presents with a rash/rashes in various areas of body including arms, under bilateral breasts, and at mons pubis. 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 In the emergency department they are afebrile with vital signs within normal limits. Provided Rxs for OTC analgesic medications, antihistamine for the pruritis, and steroid. Otherwise nontoxic appearing and stable for discharge. She is returning back home to [place] today where she has a PCP for follow up. Differential Diagnosis Differential diagnosis: Likely abscess of skin or subcutaneous tissue, viral exanthem, urticaria, herpes zoster, allergic reaction to drug, cellulitis, eczema, insect bites, impetigo and contact dermatitis Discharge Plan Discharge Clinical Impression: Skin lesion of chest wall, Contact dermatitis, Heat rash Patient Disposition: Home Condition: Stable Instructions: Antibiotic Form, Contact Dermatitis (DC) Additional Instructions: Because there was a preferred pharmacy, it would not allow me to print your Rx but they have already been electronically sent and can be picked up this morning at the pharmacy. Acetaminophen/Tylenol (maximum 4000 mg per day) is safe to take with NSAIDs (ibuprofen/Motrin) for pain relief. You can use diphenhydramine/Benadryl for itching. You received your 1st dose of steroid in the ED, you can take the rest of the course starting tomorrow (take before 9am when possible). Follow-up either with your primary care physician here or back home in [place]. Return to the emergency department with any new or worsening symptoms Patient Language: Tamazight Prescriptions: New ibuprofen 600 mg tablet 600 mg PO TID PRN (Reason: pain) Qty: 30 0RF acetaminophen 500 mg capsule 1,000 mg PO Q6H PRN (Reason: pain) Qty: 30 0RF diphenhydramine HCl [Allergy (diphenhydramine)] 25 mg capsule 25 mg PO TID PRN (Reason: itching) Qty: 16 0RF prednisone 20 mg tablet 20 mg PO DAILY 4 Days Qty: 4 0RF Rx Instructions: start 04/02 (rec'd first dose in ED 04/01) take before 9am when possible No Action drospirenone-ethinyl estradiol [BRODIE (28)] 3-0.02 mg tablet 1 tablet PO DAILY Qty: 84 3RF sulfamethoxazole-trimethoprim [Bactrim DS] 800-160 mg tablet 1 tablet PO Q12H Qty: 14 3RF Follow-up/Referrals: Jaison Whitlock APRN [Primary Care Provider] - Stand Alone Forms: Work/School Release IP Time of Disposition: 06:20
--- OUTSIDE RECORDS SUMMARY | 2025-04-01 06:15 | XMS_ITS | Encounter Summary ---
Author Organization [facility] Address [address] [place] [address] Care Team Providers Care Precast Concrete Products Installer Name Role Phone Renan Mendez MD Primary Care Provider +1- [phone] Encounter Details Date Type Department Care Team (Late st Contact Info) Description 09/25/2021 Procedure Pass [facility] Periop Services [address] [place] [address] Social History Tobacco Use Types [...] COVID-19? No / Unsure 09/25/2021 10:03 AM STUDIO HAND documented as of this encounter Functional Status [...] on filedocumented in this encounter Care Teams Precast Concrete Products Installer Relationship Specialty Start Date End Date Renan Mendez MD PCP - General Family Medicine 03/05/17 documented as of this encounter
--- OUTSIDE RECORDS SUMMARY | 2025-04-01 06:15 | XMS_ITS | Clinical Summary ---
Author Organization [facility] Address [address] [place] [address] Care Team Providers Care Marketing Support Specialist Name Role Phone Pcp-Unable To Interview, Did [...] complete this topic Insurance MEDICAID Care Teams Marketing Support Specialist Relationship Specialty Start Date End Date Pcp-Unable To Interview, Did Not Encounter, PT [address] [facility] [facility] [place] [address] PCP - General 01/26/23
--- OUTSIDE RECORDS SUMMARY | 2025-04-01 06:15 | XMS_ITS | Clinical Summary ---
Author Organization [facility] Address [address] [place] [address] Care Team Providers Care Clinical Quality Analyst Name Role Phone Renan Mendez MD Primary Care Provider +1- [phone] Source Comments [facility] is the largest [facility] system based in [place]. We offer more than 150 locations around the formerly [facility], in communities large and small, so health care access is convenient. With 19 [facility] and [facility] hospitals, over 25 long-term care and retirement facilities, dozens of physician offices and health centers, home care, hospice, behavioral health services and more. Currently six of our Hospitals are live on the [employer] system, they are: [facility] Allergies No known active allergies Medications [...] recommendations. -Tylenol for fevers PRN -Pain management: [place] (5/325mg) PO q4h PRN ( will most [...] guidance discussed. Mother provided with copy of [facility] Department of Health Services Certificate of [...] child visit, or sooner as needed. 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 Assessment & Plan (07/27/2013 5:05 AM CREDIT PRODUCT ANALYST): Improving, finish course of steroids/anti-virals -Will f/u as needed ----- Assessment & Plan (07/27/2013 4:59 AM CREDIT PRODUCT ANALYST): Acute, etiology unknown, will send for [...] PPD Test 02/09/2008,12/16/2004 Pneumococcal Conjugate 13-Va lent ([id number]) 02/09/2008,05/21/2004,01/10/2004,09/19,2003 Varicella 02/11/2008 tdap 04/26/2015 Family History [...] Comments Blood Pressure 108/65 10/10/2021 10:57 AM CREDIT PRODUCT ANALYST Pulse 93 10/10/2021 12:31 PM CREDIT PRODUCT ANALYST Temperature 37.3 C (99.1 F) 10/10/2021 10:57 AM CREDIT PRODUCT ANALYST Respiratory Rate 18 10/10/2021 12:31 PM CREDIT PRODUCT ANALYST Oxygen Saturation 100% 10/10/2021 12:31 PM CREDIT PRODUCT ANALYST Inhaled Oxygen Concentration - - Weight 61.2 kg (135 lb) 10/10/2021 10:57 AM CREDIT PRODUCT ANALYST Height 154.9 cm (5' 1) 10/10/2021 10:57 AM CREDIT PRODUCT ANALYST Body Mass Index 25.51 10/10/2021 10:57 AM CREDIT PRODUCT ANALYST Plan of Treatment Health Maintenance Due [...] 9:38 PM 05/21/2016 9:55 PM Care Teams Clinical Quality Analyst Relationship Specialty Start Date End Date Renan Mendez MD PCP - General Family Medicine 03/05/17
--- OUTSIDE RECORDS SUMMARY | 2025-04-01 06:15 | XMS_ITS | Encounter Summary ---
Author Organization [facility] Address [address] [place] [address] Care Team Providers Care Dental Office Coordinator Name Role Phone Renan Mendez MD Primary Care Provider +1- [phone] Encounter Details Date Type Department Care Team ([facility] st Contact Info) Description 09/06/2021 Transcribed Order [facility] Patient Access [address] [place], [place] [id number] Zacarias Suh MD [address] [id number] Infected pilonidal cyst (Primary Dx) Social History [...] COVID-19? No / Unsure 08/29/2021 9:51 AM ACCOUNT CONTACT ASSOCIATE documented as of this encounter Functional Status [...] Results * (ABNORMAL) PT/INR (09/06/2021 8:37 AM ACCOUNT CONTACT ASSOCIATE) Prothrombin Time 14.4(H) 10.1 - 13.1 sec *LAB-([facility] INR 1.3(H) 0.9 - 1.1 *[facility] Comment: INR: 2.0-3.0 CONVENTIONAL ANTICOAGULATION INR: 2.5-3.5 INTENSIVE ANTICOAGULATION FOR ADDITIONAL INFORMATION REGARDING SPECIFIC CLINICAL SCENARIOS, DURATION OF ANTICOAGULANT THERAPY AND COMBINATION THERAPY WITH OTHER ANTICOAGULANTS, PLEASE REFER TO THE [place] COL[employer] OF CHEST PHYSICIANS EVIDENCE-BASED CLINICAL PRACTICE GUIDELINES AVAILABLE AT: [email or web address] Performed at [facility] Blood (Blood) 09/06/2021 8:3 7 AM ACCOUNT CONTACT ASSOCIATE 09/06/2021 8:41 AM ACCOUNT CONTACT ASSOCIATE Zacarias Suh MD LAB BLOOD ORDERABLES *LAB-([facility]) [facility] * (ABNORMAL) CBC Complete Blood Count & Diff (09/06/2021 8:37 AM ACCOUNT CONTACT ASSOCIATE) WBC 8.0 4.0 - 11.0 k/mm cu *LAB-([facility] Platelets 491(H) 150 - 450 k/mm cu *[facility] RBC 4.58 3.63 - 5.04 m/mm cu *[facility] Hemoglobin 13.3 12.0 - 15.3 [...] [facility] Basophils Absolute 0.0 Performed at [facility] 0 - 0.2 k/mm cu *[facility]-([facility] Blood (Blood) 09/06/2021 8:3 7 AM ACCOUNT CONTACT ASSOCIATE 09/06/2021 8:41 AM ACCOUNT CONTACT ASSOCIATE Zacarias Suh MD LAB BLOOD ORDERABLES *[facility] * Basic Metabolic Panel (Sunquest BMP) (09/06/2021 8:37 AM ACCOUNT CONTACT ASSOCIATE) Glucose 95 70 - 99 mg/dL *LAB-([facility]) [facility] BUN 8 7 - 25 mg/dL *LAB-([facility]) [facility] Creatinine 0.79 0.5 - 1.2 mg/dL *LAB-([facility]) [facility] Sodium 140 133 - 144 mmol/L *LAB-([facility]) [facility] Potassium 3.7 3.5 - 5.1 mmol/L *LAB-([facility]) [facility] Chloride 104 98 - 107 mmol/L *LAB-([facility]) [facility] CO2 29 21 - 31 mmol/L *LAB-([facility]) [facility] Anion Gap 7 6.2 - 14.7 mmol/L *LAB-([facility]) [facility] BUN/Creatinine Ratio 10.1 6.0 - 20.0 *LAB-([facility]) [facility] Calcium 9.6 8.6 - 10.3 mg/dL *LAB-([facility]) [facility] GFR MDRD Non Af Amer >60 >60 mL/min/1.7 3m *LAB-([facility]) [facility] GFR MDRD Af Amer >60 >60 mL/min/1.7 3m *LAB-([facility]) [facility] Comment:Performed at [facility] Blood (Blood) 09/06/2021 8:3 7 AM ACCOUNT CONTACT ASSOCIATE 09/06/2021 8:41 AM ACCOUNT CONTACT ASSOCIATE Zacarias Suh MD LAB BLOOD ORDERABLES *LAB([facility]) [facility] documented in this encounter Visit Diagnoses Diagnosis Infected pilonidal cyst- Primary Pilonidal cyst without mention of abscess documented in this encounter Care Teams Dental Office Coordinator Relationship Specialty Start Date End Date Renan Mendez MD PCP - General Family Medicine 03/05/17 documented as of this encounter
--- OUTSIDE RECORDS SUMMARY | 2025-04-01 06:15 | XMS_ITS | Referral Summary ---
Author Organization [facility] Address [address] [place] [address] Care Team Providers Care Albacore Fishing Boat Crewman Name Role Phone Pcp-Unable To Interview, Did [...] Plan of Treatment Not on file Insurance [place] [facility] [place] [address] MEDICAID Care Teams Albacore Fishing Boat Crewman Relationship Specialty Start Date End Date Pcp-Unable To Interview, Did Not Encounter, PT [address] [place] [address] PCP - General 01/26/23
[2025-04-01] MEDS: diphenhydrAMINE HCl CAP 25 MG CAPSULE PO (06:25)
[2025-04-01] MEDS: KETOROLAC 30 MG/ML VIAL (*BKC) 15 MG IM (06:26)
== END 2025-04-01 06:38 | disposition home or self-care (01) ==
PROVIDERS: Emergency Provider Student in an Organized Health Care Education/Training Program; PCP Student in an Organized Health Care Education/Training Program
DX: L25.9 Unspecified contact dermatitis, unspecified cause (principal); L74.0 Miliaria rubra
CPT/HCPCS: 96372; 99283; A9270; J1885; J7512

== ENCOUNTER 2025-04-21 14:17 | Outpatient (NON) | payer OTHER, SELFPAY ==
--- OUTSIDE RECORDS SUMMARY | 2025-04-21 14:20 | XMS_ITS | Encounter Summary ---
Author Organization [facility] Address [address] [place] [address] Care Team Providers Care Perinatal Social Worker Name Role Phone Renan Mendez MD Primary Care Provider +1- [phone] Encounter Details Date Type Department Care Team (Late st Contact Info) Description 09/25/2021 Procedure Pass [facility] [address] [place] [address] Social History Tobacco Use Types [...] COVID-19? No / Unsure 09/25/2021 10:03 AM MANAGER PAYER documented as of this encounter Functional Status [...] on filedocumented in this encounter Care Teams Perinatal Social Worker Relationship Specialty Start Date End Date Renan Mendez MD PCP - General Family Medicine 03/05/17 documented as of this encounter
--- OUTSIDE RECORDS SUMMARY | 2025-04-21 14:20 | XMS_ITS | Clinical Summary ---
Author Organization [facility] Address [address] [place] [address] Care Team Providers Care Balancing Machine Set Up Worker Name Role Phone Renan Mendez MD Primary Care Provider +1- [phone] Source Comments [facility] is the largest [facility] health system based in [place]. We offer more than 150 locations around the critical access hospital, in communities large and small, so health care access is convenient. With 19 [facility] and [facility] hospitals, over 25 long-term care and fdc facilities, dozens of physician offices and health centers, home care, hospice, behavioral health services and more. Currently six of our Hospitals are live on the [employer] system, they are: [facility] 2] [facility] Allergies No known active allergies Medications [...] recommendations. -Tylenol for fevers PRN -Pain management: [place] (5/325mg) PO q4h PRN ( will most [...] guidance discussed. Mother provided with copy of [facility] Department of Health Services Certificate of [...] child visit, or sooner as needed. Facial paralysis/[place] palsy 07/27/2013 Assessment & Plan (07/27/2013 5:05 AM RISK INVESTIGATOR): Improving, finish course of steroids/anti-virals -Will f/u as needed ----- Assessment & Plan (07/27/2013 4:59 AM RISK INVESTIGATOR): Acute, etiology unknown, will send for lyme/HSV [...] PPD Test 02/09/2008,12/16/2004 Pneumococcal Conjugate 13-Va lent ([id number]) 02/09/2008,05/21/2004,01/10/2004,09/19,2003 Varicella 02/11/2008 tdap 04/26/2015 Family History [...] Comments Blood Pressure 108/65 10/10/2021 10:57 AM RISK INVESTIGATOR Pulse 93 10/10/2021 12:31 PM RISK INVESTIGATOR Temperature 37.3 C (99.1 F) 10/10/2021 10:57 AM RISK INVESTIGATOR Respiratory Rate 18 10/10/2021 12:31 PM RISK INVESTIGATOR Oxygen Saturation 100% 10/10/2021 12:31 PM RISK INVESTIGATOR Inhaled Oxygen Concentration - - Weight 61.2 kg (135 lb) 10/10/2021 10:57 AM RISK INVESTIGATOR Height 154.9 cm (5' 1) 10/10/2021 10:57 AM RISK INVESTIGATOR Body Mass Index 25.51 10/10/2021 10:57 AM RISK INVESTIGATOR Plan of Treatment Health Maintenance Due Date [...] 9:38 PM 05/21/2016 9:55 PM Care Teams Balancing Machine Set Up Worker Relationship Specialty Start Date End Date Renan Mendez MD PCP - General Family Medicine 03/05/17
--- OUTSIDE RECORDS SUMMARY | 2025-04-21 14:20 | XMS_ITS | Clinical Summary ---
Author Organization [facility] Address [address] [place] [address], [address] Care Team Providers Care Cloth Weigher Name Role Phone Unavailable Primary Care Provider Unavailabl e Social History Tobacco Use Types Packs/Day Years Used Date Smoking Tobacco: Never Assessed Sex and Gender Information Value Date Recorded Sex Assigned at Not on file Gender Identity Not on file Sexual Orientation Not on file Plan of Treatment Not on file
--- OUTSIDE RECORDS SUMMARY | 2025-04-21 14:20 | XMS_ITS | Encounter Summary ---
Author Organization [facility] Address [address] [place] [address] Care Team Providers Care Manager Business Intelligence Name Role Phone Renan Mendez MD Primary Care Provider +1- [phone] Encounter Details Date Type Department Care Team ([facility] st Contact Info) Description 09/06/2021 Transcribed Order [facility] Patient Access [address] [place], [place] [id number] Zacarias Suh MD [address] [id number] Infected pilonidal cyst (Primary Dx) Social History [...] COVID-19? No / Unsure 08/29/2021 9:51 AM STRUCTURAL METAL FABRICATOR APPRENTICE documented as of this encounter Functional Status [...] Results * (ABNORMAL) PT/INR (09/06/2021 8:37 AM STRUCTURAL METAL FABRICATOR APPRENTICE) Prothrombin Time 14.4(H) 10.1 - 13.1 sec *[facility] INR 1.3(H) 0.9 - 1.1 *[facility] Comment: INR: 2.0-3.0 CONVENTIONAL ANTICOAGULATION INR: 2.5-3.5 INTENSIVE ANTICOAGULATION FOR ADDITIONAL INFORMATION REGARDING SPECIFIC CLINICAL SCENARIOS, DURATION OF ANTICOAGULANT THERAPY AND COMBINATION THERAPY WITH OTHER ANTICOAGULANTS, PLEASE REFER TO THE [place] [employer] OF CHEST PHYSICIANS EVIDENCE-BASED CLINICAL PRACTICE GUIDELINES AVAILABLE AT: [email or web address] Performed at [facility] Blood (Blood) 09/06/2021 8:3 7 AM STRUCTURAL METAL FABRICATOR APPRENTICE 09/06/2021 8:41 AM STRUCTURAL METAL FABRICATOR APPRENTICE Zacarias Suh MD LAB BLOOD ORDERABLES *LAB-([facility] * (ABNORMAL) CBC Complete Blood Count & Diff (09/06/2021 8:37 AM STRUCTURAL METAL FABRICATOR APPRENTICE) WBC 8.0 4.0 - 11.0 k/mm cu *LAB-([facility] Platelets 491(H) 150 - 450 k/mm cu *[facility] RBC 4.58 3.63 - 5.04 m/mm cu [...] [facility] Basophils Absolute 0.0 Performed at [facility] 0 - 0.2 k/mm cu *LAB-([facility] Blood (Blood) 09/06/2021 8:3 7 AM STRUCTURAL METAL FABRICATOR APPRENTICE 09/06/2021 8:41 AM STRUCTURAL METAL FABRICATOR APPRENTICE Zacarias Suh MD LAB BLOOD ORDERABLES *[facility] * Basic Metabolic Panel ([facility] BMP) (09/06/2021 8:37 AM STRUCTURAL METAL FABRICATOR APPRENTICE) Glucose 95 70 - 99 mg/dL *LAB-([facility]) [facility] BUN 8 7 - 25 mg/dL *LAB-([facility]) [facility] Creatinine 0.79 0.5 - 1.2 mg/dL *LAB-([facility]) [facility] Sodium 140 133 - 144 mmol/L *LAB-([facility]) [facility] Potassium 3.7 3.5 - 5.1 mmol/L *LAB-([facility]) [facility] Chloride 104 98 - 107 mmol/L *LAB-([facility]) [facility] CO2 29 21 - 31 mmol/L *LAB-([facility] Anion Gap 7 6.2 - 14.7 mmol/L *LAB-([facility]) [facility] BUN/Creatinine Ratio 10.1 6.0 - 20.0 *LAB-([facility]) [facility] Calcium 9.6 8.6 - 10.3 mg/dL *LAB-([facility]) [facility] GFR MDRD Non Af Amer >60 >60 mL/min/1.7 3m *LAB-([facility]) [facility] GFR MDRD Af Amer >60 >60 mL/min/1.7 3m *LAB-([facility] Comment:Performed at [facility] Blood (Blood) 09/06/2021 8:3 7 AM STRUCTURAL METAL FABRICATOR APPRENTICE 09/06/2021 8:41 AM STRUCTURAL METAL FABRICATOR APPRENTICE Zacarias Suh MD LAB BLOOD ORDERABLES *LAB([facility]) [facility] documented in this encounter Visit Diagnoses Diagnosis Infected pilonidal cyst- Primary Pilonidal cyst without mention of abscess documented in this encounter Care Teams Manager Business Intelligence Relationship Specialty Start Date End Date Renan Mendez MD PCP - General Family Medicine 03/05/17 documented as of this encounter
== END 2025-04-21 14:18 | disposition home or self-care (01) ==
LOC: ANHGOSHLAB 14:18
PROVIDERS: PCP Student in an Organized Health Care Education/Training Program; Visit Provider Student in an Organized Health Care Education/Training Program
DX: R35.0 Frequency of micturition (principal); Z20.2 Contact with and (suspected) exposure to infections with a predominantly sexual mode of transmission
CPT/HCPCS: 87491; 87591

== ENCOUNTER 2025-05-30 17:26 | Emergency (ER) | payer OTHER, SELFPAY ==
--- OUTSIDE RECORDS SUMMARY | 2025-05-30 17:28 | XMS_ITS | Encounter Summary ---
Author Organization [facility] Address [address] [place] [address] Care Team Providers Care Immersion Metal Cleaner Name Role Phone Renan Mendez MD Primary Care Provider +1- [phone] Encounter Details Date Type Department Care Team ([facility] st Contact Info) Description 09/06/2021 Transcribed Order [facility] Patient Access [address] [place], [place] [phone] Zacarias Suh MD [address] [phone] Infected pilonidal cyst (Primary Dx) Social History [...] COVID-19? No / Unsure 08/29/2021 9:51 AM CRIPPLE CHASER documented as of this encounter Functional Status [...] Results * (ABNORMAL) PT/INR (09/06/2021 8:37 AM CRIPPLE CHASER) Prothrombin Time 14.4(H) 10.1 - 13.1 sec *LAB-([facility]) [facility] INR 1.3(H) 0.9 - 1.1 *[facility] Comment: INR: 2.0-3.0 CONVENTIONAL ANTICOAGULATION INR: 2.5-3.5 INTENSIVE ANTICOAGULATION FOR ADDITIONAL INFORMATION REGARDING SPECIFIC CLINICAL SCENARIOS, DURATION OF ANTICOAGULANT THERAPY AND COMBINATION THERAPY WITH OTHER ANTICOAGULANTS, PLEASE REFER TO THE [place] [employer] OF CHEST PHYSICIANS EVIDENCE-BASED CLINICAL PRACTICE GUIDELINES AVAILABLE AT: [email or web address] Performed at [facility] Blood (Blood) 09/06/2021 8:3 7 AM CRIPPLE CHASER 09/06/2021 8:41 AM CRIPPLE CHASER Zacarias Suh MD LAB BLOOD ORDERABLES *LAB-([facility]) [facility] * (ABNORMAL) CBC Complete Blood Count & Diff (09/06/2021 8:37 AM CRIPPLE CHASER) WBC 8.0 4.0 - 11.0 k/mm cu *LAB-([facility] Platelets 491(H) 150 - 450 k/mm cu *[facility] RBC 4.58 3.63 - 5.04 m/mm cu *[facility] Hemoglobin 13.3 12.0 - 15.3 g/dL [...] [facility] Basophils Absolute 0.0 Performed at [facility] 0 - 0.2 k/mm cu *[facility]-([facility] Blood (Blood) 09/06/2021 8:3 7 AM CRIPPLE CHASER 09/06/2021 8:41 AM CRIPPLE CHASER Zacarias Suh MD LAB BLOOD ORDERABLES *[facility] * Basic Metabolic Panel (Sunquest BMP) (09/06/2021 8:37 AM CRIPPLE CHASER) Glucose 95 70 - 99 mg/dL *LAB-([facility]) [facility] BUN 8 7 - 25 mg/dL *LAB-([facility]) [facility] Creatinine 0.79 0.5 - 1.2 mg/dL *LAB-([facility]) [facility] Sodium 140 133 - 144 mmol/L *LAB-([facility]) [facility] Potassium 3.7 3.5 - 5.1 mmol/L *LAB-([facility]) [facility] Chloride 104 98 - 107 mmol/L *LAB-([facility]) [facility] CO2 29 21 - 31 mmol/L *LAB-([facility]) [facility] Anion Gap 7 6.2 - 14.7 mmol/L *LAB-([facility]) [facility] BUN/Creatinine Ratio 10.1 6.0 - 20.0 *LAB-([facility]) [facility] Calcium 9.6 8.6 - 10.3 mg/dL *LAB-([facility]) [facility] GFR MDRD Non Af Amer >60 >60 mL/min/1.7 3m *LAB-([facility]) [facility] GFR MDRD Af Amer >60 >60 mL/min/1.7 3m *LAB-([facility]) [facility] Comment:Performed at [facility] Blood (Blood) 09/06/2021 8:3 7 AM CRIPPLE CHASER 09/06/2021 8:41 AM CRIPPLE CHASER Zacarias Suh MD LAB BLOOD ORDERABLES *LAB([facility]) [facility] documented in this encounter Visit Diagnoses Diagnosis Infected pilonidal cyst- Primary Pilonidal cyst without mention of abscess documented in this encounter Care Teams Immersion Metal Cleaner Relationship Specialty Start Date End Date Renan Mendez MD PCP - General Family Medicine 03/05/17 documented as of this encounter
--- OUTSIDE RECORDS SUMMARY | 2025-05-30 17:28 | XMS_ITS | Clinical Summary ---
Author Organization [facility] Address [address] [place] [address] Care Team Providers Care Director Family Name Role Phone Renan Mendez MD Primary Care Provider +1- [phone] Source Comments [facility] is the largest [facility] health system based in [place]. We offer more than 150 locations around the formerly [facility], in communities large and small, so health care access is convenient. With 19 [facility] and [facility] hospitals, over 25 long-term care and fdc facilities, dozens of physician offices and health centers, home care, hospice, behavioral health services and more. Currently six of our Hospitals are live on the [employer] system, they are: [facility] Allergies No known active allergies Medications [...] recommendations. -Tylenol for fevers PRN -Pain management: [place] (5/325mg) PO q4h PRN ( will most [...] guidance discussed. Mother provided with copy of [facility] Department of Health Services Certificate of [...] child visit, or sooner as needed. Facial paralysis/[place] palsy 07/27/2013 Assessment & Plan (07/27/2013 5:05 AM GUIDANCE ADVISER): Improving, finish course of steroids/anti-virals -Will f/u as needed ----- Assessment & Plan (07/27/2013 4:59 AM GUIDANCE ADVISER): Acute, etiology unknown, will send for lyme/HSV -Prednisone 40 mg po daily x 5 days -Acyclovir 400 mg po TID x 7 days -Will re-eval on Thursday07/15/13 ----- Resolved Problems Problem Noted Date Diagnosed Date Resolved Date Leukocytosis 05/23/2016 05/25/2016 Overview (05/25/2016): Resolved. WBC normal of 8.7 ----- Sepsis (HCC) 05/21/2016 05/22/2016 Overview (05/22/2016): Stable. Met Sepsis [...] PPD Test 02/09/2008,12/16/2004 Pneumococcal Conjugate 13-Va lent ([id number]) 02/09/2008,05/21/2004,01/10/2004,09/19,2003 Varicella 02/11/2008 tdap 04/26/2015 Family History [...] Comments Blood Pressure 108/65 10/10/2021 10:57 AM GUIDANCE ADVISER Pulse 93 10/10/2021 12:31 PM GUIDANCE ADVISER Temperature 37.3 C (99.1 F) 10/10/2021 10:57 AM GUIDANCE ADVISER Respiratory Rate 18 10/10/2021 12:31 PM GUIDANCE ADVISER Oxygen Saturation 100% 10/10/2021 12:31 PM GUIDANCE ADVISER Inhaled Oxygen Concentration - - Weight 61.2 kg (135 lb) 10/10/2021 10:57 AM GUIDANCE ADVISER Height 154.9 cm (5' 1) 10/10/2021 10:57 AM GUIDANCE ADVISER Body Mass Index 25.51 10/10/2021 10:57 AM GUIDANCE ADVISER Plan of Treatment Health Maintenance Due Date Last Done Comments DEPRESSION SCREENING 1 YEAR 2015 HIV SCREENING 2018 CHLAMYDIA SCREENING 2019 Lipid Panel 2023 PAP Smear (Cervical Cancer Screening) 2024 04/21/2021 DTAP,TDAP AND TD VACCINES (2 - Td or Tdap) 04/26/2025 04/26/2015, 02/09/2008, 12/16/2004, Additional history exists COVID-19 VACCINATION (3 - 2024- season) 2025 12/29/2020, 12/08/2020 Influenza Vaccine (#1) 2025 05/28/2016 RSV Vaccine Patients 60 Years and Older (1 - 1-dose 75+ series) 2078 Pneumococcal Vaccine: Peds (0-5 Yrs) and At-Risk (6-64 Yrs) Completed 02/09/2008, 05/21/2004, 05/21/2004, Additional history exists HPV VACCINATION Completed 01/16/2018, 04/26/2015 RSV Vaccine Pediatric Patients under 20 months Aged Out No longer eligi ble based on patient's age to complete this topic Advance Directives * Full Code (Latest Code Status on File) Date Activated Date Inactivated Comments 05/21/2016 9:55 PM 05/25/2016 10:16 PM * Full Code Date Activated Date Inactivated Comments 05/21/2016 9:38 PM 05/21/2016 9:55 PM Care Teams Director Family Relationship Specialty Start Date End Date Renan Mendez MD PCP - General Family Medicine 03/05/17
--- OUTSIDE RECORDS SUMMARY | 2025-05-30 17:28 | XMS_ITS | Clinical Summary ---
Author Organization [facility] Address [address] [place] [address], [address] Care Team Providers Care Mastic Worker Name Role Phone Unavailable Primary Care Provider Unavailabl e Social History Tobacco Use Types Packs/Day Years Used Date Smoking Tobacco: Never Assessed Sex and Gender Information Value Date Recorded Sex Assigned at Not on file Gender Identity Not on file Sexual Orientation Not on file Plan of Treatment Not on file
--- OUTSIDE RECORDS SUMMARY | 2025-05-30 17:28 | XMS_ITS | Clinical Summary ---
Author Organization [facility] Address [address] [place] [address] Care Team Providers Care Entry Level Java Developer Name Role Phone Pcp-Unable To Interview, Did [...] COVID-19 Vaccine (1 - 2023-2 5 season) 2025 Influenza Vaccine (#1) 2025 Pneumococcal 7-64 Aged Out No longer eligible based on patient's age to complete this topic RSV Vaccine (Pediatric) Aged Out No l onger eligible based on patient's age to complete this topic Insurance MEDICAID Care Teams Entry Level Java Developer Relationship Specialty Start Date End Date Pcp-Unable To Interview, Did Not Encounter, PT [address] [place] [address] PCP - General 01/26/23
--- OUTSIDE RECORDS SUMMARY | 2025-05-30 17:28 | XMS_ITS | Encounter Summary ---
Author Organization [facility] Address [address] [place] [address] Care Team Providers Care Creative Engagement Director Name Role Phone Renan Mendez MD Primary Care Provider +1- [phone] Encounter Details Date Type Department Care Team (Late st Contact Info) Description 09/25/2021 Procedure Pass [facility] Periop Services [address] [place] [address] Social History Tobacco Use Types [...] COVID-19? No / Unsure 09/25/2021 10:03 AM NETWORK SUPPORT documented as of this encounter Functional Status [...] on filedocumented in this encounter Care Teams Creative Engagement Director Relationship Specialty Start Date End Date Renan Mendez MD PCP - General Family Medicine 03/05/17 documented as of this encounter
--- NOTE | 2025-05-30 18:34 | PC.NURSE ---
Pt called for triage, no response
--- NOTE | 2025-05-30 19:03 | PC.NURSE ---
Pt called for triage, no response
== END 2025-05-30 19:23 | disposition left against medical advice (07) ==
PROVIDERS: PCP Student in an Organized Health Care Education/Training Program
DX: Z53.21 Procedure and treatment not carried out due to patient leaving prior to being seen by health care provider (principal)
CPT/HCPCS: 99199

== ENCOUNTER 2025-08-23 13:50 | Outpatient (CLI) | payer OTHER, SELFPAY ==
--- OUTSIDE RECORDS SUMMARY | 2025-08-23 16:24 | XMS_ITS | Encounter Summary ---
Author Organization [facility] Address [address] [place] [address] Care Team Providers Care Wood Box Maker Name Role Phone Renan Mendez MD Primary Care Provider +1- [phone] Encounter Details Date Type Department Care Team ([facility] st Contact Info) Description 09/06/2021 Transcribed Order [facility] Patient Access [address] [place], [place] [id number] Zacarias Suh MD [address] [id number] Infected pilonidal cyst (Primary Dx) Social History Tobacco Use Types Packs/Day Years Used Date Smoking Tobacco: Never Smokeless Tobacco: Never Alcohol Use Standard Drinks/Week Comments No 0 (1 standard drink = 0.6 oz pur e alcohol) Comments No Sex and Gender Information Value Date Recorded Sex Assigned at Not on file Legal Sex Female 9:55 PM CDT Gender Identity Not on file Sexual Orientation Not on file COVID-19 Exposure Response Date Recorded In the last month, have you been in contact with someone who was confirmed or suspected to have Coronavirus / COVID-19? No / Unsure 08/29/2021 9:51 AM TEXTILE SCREEN MAKER documented as of this encounter Functional Status * Is the patient deaf or do they have serious difficulty hearing? Answer Date of Assessment Author No 05/25/2016 8:11 PM CDT My Grady RN * Is the patient blind, or do they have serious difficulty seeing even when wearing glasses? Answer Date of Assessment Author No 05/25/2016 8:11 PM My Mcdaniel RN * Does the patient have serious difficulty walking or climbing stairs? Answer Date of Assessment Author No 05/25/2016 8:11 PM My Mcdaniel RN * Does the patient have difficulty dressing or bathing? Answer Date of Assessment Author No 05/25/2016 8:11 PM My Mcdaniel RN * Does the patient have difficulty completing errands alone because of a physical, mental, or emotional condition? Answer Date of Assessment Author No 05/25/2016 8:11 PM My Mcdaniel RN documented as of this encounter Mental Status * Does the patient have serious difficulty concentrating, remembering, or making decisions because ofa physical, mental, or emotional condition? Answer Entry Date Author No 05/25/2016 8:11 PM My Mcdaniel RN documented in this encounter Plan of Treatment Not on file documented as of this encounter Results * (ABNORMAL) PT/INR (09/06/2021 8:37 AM TEXTILE SCREEN MAKER) Prothrombin Time 14.4(H) 10.1 - 13.1 sec *[facility] INR 1.3(H) 0.9 - 1.1 *LAB-([facility]) [facility] Comment: INR: 2.0-3.0 CONVENTIONAL ANTICOAGULATION INR: 2.5-3.5 INTENSIVE ANTICOAGULATION FOR ADDITIONAL INFORMATION REGARDING SPECIFIC CLINICAL SCENARIOS, DURATION OF ANTICOAGULANT THERAPY AND COMBINATION THERAPY WITH OTHER ANTICOAGULANTS, PLEASE REFER TO THE [employer] EVIDENCE-BASED CLINICAL PRACTICE GUIDELINES AVAILABLE AT: [email or web address] Performed at [facility] Blood (Blood) 09/06/2021 8:3 7 AM TEXTILE SCREEN MAKER 09/06/2021 8:41 AM TEXTILE SCREEN MAKER Zacarias Suh MD LAB BLOOD ORDERABLES Final Re sult *LAB-([facility]) [facility] * (ABNORMAL) CBC Complete Blood Count & Diff (09/06/2021 8:37 AM TEXTILE SCREEN MAKER) WBC 8.0 4.0 - 11.0 k/mm cu *LAB-([facility]) [facility] Platelets 491(H) 150 - 450 k/mm cu *LAB-([facility] RBC 4.58 3.63 - 5.04 m/mm cu *LAB-([facility] Hemoglobin 13.3 12.0 - 15.3 g/dL *LAB-([facility] Hematocrit 38.9 34.7 - [...] [facility] Basophils Absolute 0.0 Performed at [facility] 0 - 0.2 k/mm cu *[facility]-([facility] Blood (Blood) 09/06/2021 8:3 7 AM TEXTILE SCREEN MAKER 09/06/2021 8:41 AM TEXTILE SCREEN MAKER Zacarias Suh MD LAB BLOOD ORDERABLES Final Re sult *[facility] * Basic Metabolic Panel ([facility] BMP) (09/06/2021 8:37 AM TEXTILE SCREEN MAKER) Pathologist [facility] Glucose 95 70 - 99 mg/dL *[facility] BUN 8 7 - 25 mg/dL *LAB-([facility]) [facility] Creatinine 0.79 0.5 - 1.2 mg/dL *LAB-([facility]) [facility] Sodium 140 133 - 144 mmol/L *[facility]-([facility] Potassium 3.7 3.5 - 5.1 mmol/L *[facility] Chloride 104 98 - 107 mmol/L *[facility] CO2 29 21 - 31 mmol/L *[facility] Anion Gap 7 6.2 - 14.7 mmol/L *LAB-([facility]) [facility] BUN/Creatinine Ratio 10.1 6.0 - 20.0 *[facility] Calcium 9.6 8.6 - 10.3 mg/dL *LAB-([facility]) [facility] GFR MDRD Non Af Amer >60 >60 mL/min/1.7 3m *[facility]-([facility] GFR MDRD Af Amer >60 >60 mL/min/1.7 3m *[facility] Comment:Performed at [facility] Blood (Blood) 09/06/2021 8:3 7 AM TEXTILE SCREEN MAKER 09/06/2021 8:41 AM TEXTILE SCREEN MAKER us Zacarias uSh MD LAB BLOOD ORDERABLES Final Re sult *LAB-([facility]) [facility] documented in this encounter Visit Diagnoses Diagnosis Infected pilonidal cyst- Primary Pilonidal cyst without mention of abscess documented in this encounter Care Teams Wood Box Maker Relationship Specialty Start Date End Date Renan Mendez MD PCP - General Family Medicine 03/05/17 documented as of this encounter
--- OUTSIDE RECORDS SUMMARY | 2025-08-23 16:24 | XMS_ITS | Encounter Summary ---
Author Organization [facility] Address [address] [place] [address] Care Team Providers Care Furniture Builder Name Role Phone Renan Mendez MD Primary Care Provider +1- [phone] Encounter Details Date Type Department Care Team (Late st Contact Info) Description 09/25/2021 Procedure Pass [facility] Periop Services [address] [place] [address] Social History Tobacco Use Types [...] COVID-19? No / Unsure 09/25/2021 10:03 AM DIRECTOR OF RESTAURANT documented as of this encounter Functional Status * Is the patient deaf or do they have serious difficulty hearing? Answer Date of Assessment Author No 05/25/2016 8:11 PM CDT My Grady RN * Is the patient blind, or do they have serious difficulty seeing even when wearing glasses? Answer Date of Assessment Author No 05/25/2016 8:11 PM CDT My Grady RN * Does the patient have serious difficulty walking or climbing stairs? Answer Date of Assessment Author No 05/25/2016 8:11 PM LORRAINET My Grady RN * Does the patient have difficulty [...] on filedocumented in this encounter Care Teams Furniture Builder Relationship Specialty Start Date End Date Renan Mendez MD PCP - General Family Medicine 03/05/17 documented as of this encounter
--- OUTSIDE RECORDS SUMMARY | 2025-08-23 16:24 | XMS_ITS | Clinical Summary ---
Author Organization [facility] Address [address] [place] [address] Care Team Providers Care Cabin Service Agent Name Role Phone Renan Mendez MD Primary Care Provider +1- [phone] Source Comments [facility] is the largest [facility] system based in [place]. We offer more than 150 locations around the community health, in communities large and small, so health care access is convenient. With 19 [facility] and [facility] hospitals, over 25 long-term care and intermediate facilities, dozens of physician offices and health centers, home care, hospice, behavioral health services and more. Currently six of our Hospitals are live on the [employer] system, they are: [facility] Allergies No known active allergies Medications cephALEXin (KEFLEX) 500 MG capsule TAKE 1 [...] being isolated -D/C IV medication per Dr. Jones rec -Cephalexin 500mg TID Per ID recommendations. -Tylenol for fevers PRN -Pain management: [place] (5/325mg) PO q4h PRN ( will most [...] guidance discussed. Mother provided with copy of [facility] Department of Health Services Certificate of [...] child visit, or sooner as needed. 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 Assessment & Plan (07/27/2013 5:05 AM HEAD OF ART): Improving, finish course of steroids/anti-virals -Will f/u as needed ----- Assessment & Plan (07/27/2013 4:59 AM HEAD OF ART): Acute, etiology unknown, will send for lyme/HSV [...] mL/hr - ID on consult ----- Immunizations Immunization Administration Dates Next Due DTaP 02/09/2008, 5,01/10/2004,09/19,2003 HPV Quadrivalent 04/26/2015 Hepatitis A PED/ADOLESCENT 02/09/2008,04/30/2006 Hepatitis B Ped 01/10/2004,2003,2003 HiB (PRP-T) 07/19/2004, 4,2003,06/29 IPV 02/09/2008, 4,2003,06/29 Influenza Quadrivalent PF 05/28/2016 MENACTRA MENINGOCOCCAL MCV4P 04/26/2015 MMR 02/09/2008,05/21/2004 PPD Test 02/09/2008,12/16/2004 Pneumococcal Conjugate 13-Va lent ([id number]) 02/09/2008,05/21/2004,01/10/2004,09/19,2003 Varicella 02/11/2008 tdap 04/26/2015 Family History [...] Comments Blood Pressure 108/65 10/10/2021 10:57 AM HEAD OF ART Pulse 93 10/10/2021 12:31 PM HEAD OF ART Temperature 37.3 C (99.1 F) 10/10/2021 10:57 AM HEAD OF ART Respiratory Rate 18 10/10/2021 12:31 PM HEAD OF ART Oxygen Saturation 100% 10/10/2021 12:31 PM HEAD OF ART Inhaled Oxygen Concentration - - Weight 61.2 kg (135 lb) 10/10/2021 10:57 AM HEAD OF ART Height 154.9 cm (5' 1) 10/10/2021 10:57 AM HEAD OF ART Body Mass Index 25.51 10/10/2021 10:57 AM HEAD OF ART Plan of Treatment Health Maintenance Due Date Last Done Comments DEPRESSION SCREENING 1 YEAR 2015 HIV SCREENING 2018 CHLAMYDIA SCREENING 2019 Lipid Panel 2023 PAP Smear (Cervical Cancer Screening) 2024 04/21/2021 DTAP,TDAP AND TD VACCINES (2 - Td or Tdap) 04/26/2025 04/26/2015, 02/09/2008, 12/16/2004, Additional history exists COVID-19 VACCINATION ( - 2024- season) 2025 12/29/2020, 12/08/2020 Influenza [...] patient's age to complete this topic Insurance [facility] Advance Directives * Full Code (Latest Code Status on File) Date Activated Date Inactivated Comments 05/21/2016 9:55 PM 05/25/2016 10:16 PM * Full Code Date Activated Date Inactivated Comments 05/21/2016 9:38 PM 05/21/2016 9:55 PM Care Teams Cabin Service Agent Relationship Specialty Start Date End Date Renan Mendez MD PCP - General Family Medicine 03/05/17
--- OUTSIDE RECORDS SUMMARY | 2025-08-23 16:24 | XMS_ITS | Clinical Summary ---
Author Organization [facility] Address [address] [place] [address] Care Team Providers Care Bead Wire Taper Name Role Phone Pcp-Unable To Interview, Did [...] - Tdap) 2024 COVID-19 Vaccine (1 - 2024-2 6 season) 2025 Influenza Vaccine (#1) 2025 Pneumococcal 7-64 Aged Out No longer eligible based on patient's age to complete this topic RSV Vaccine (Pediatric) Aged Out No l onger eligible based on patient's age to complete this topic Insurance [place] MED[place] Care Teams Bead Wire Taper Relationship Specialty Start Date End Date Pcp-Unable To Interview, Did Not Encounter, PT [address] [place], [place] [id number] PCP - General 01/26/23
--- OUTSIDE RECORDS SUMMARY | 2025-08-23 16:24 | XMS_ITS | Data Portability ---
Author Organization [facility] , [facility] Address [address] [place] [address] Assessment No assessment recorded. Plan of Treatment Reminders Order Date Submit Date Provider Last Modified By Organization Details Last Modified Time Details Appointments None record ed. Lab None record ed. Referral None record ed. Procedures None record ed. Surgeries None record ed. Imaging None record ed. Medication Orders None record ed. Patient TargetsNo targets recorded. Patient InstructionsNo instructions recorded. Reason for Referral None Reported. Medical Equipment None Reported. Allergies Allergen ID Allergen Name Allergen Category Reaction Reaction Severity Criticality Documentation Date Start Date Code Code System Note Provider Name and Address Organization Details Recorded Time [id number] honey bee venom environme nt angioedem a Not available [facility] 05/22/20252022 52021 7 RxNorm unrec ogniz ed react ion (text : Rash/ Hives /Urti caria , code: 57439 1004) (from [facility]) Yanira Esparza, [facility] [address] [place], [phone], [facility] IV 5 14:32:02 Medications Name Sig Start Date Stop Date Status Note LastModified by Organization Details LastModified Time doxycycline hyclate 100 mg capsule TAKE 1 CAPSULE BY MOUTH TWICE DAILY FOR 7 DAYS active Not Available Not Available No t Available prednisone 20 mg tablet TAKE 2 TABLETS BY MOUTH DAILY WITH FOOD FOR 3 DAYS. DO NOT TAKE WITH ASPIRIN OR NSAIDS SUCH ALEVE OR IBUPROFEN ETC active Not Available Not Available No t Available sulfamethox azole 800 mg-trimetho prim 160 mg tablet TAKE 1 TABLET BY MOUTH EVERY 12 HOURS active Not Available Not Available No t Available acetaminoph en 500 mg tablet TAKE 2 TABLETS BY MOUTH EVERY 6 HOURS NEEDED FOR PAIN active Not Available Not Available No t Available triamcinolo ne acetonide 0.1 % topical cream APPLY TO THE AFFECTED AREA TWICE DAILY FOR MOSQUITO BITES active Not Available Not Available No t Available cephalexin 500 mg capsule TAKE 1 CAPSULE BY MOUTH EVERY 8 HOURS FOR 5 DAYS 05/22 completed Not Available Not Available Not Available docusate sodium 100 mg capsule TAKE 1 CAPSULE BY MOUTH DAILY NEEDED FOR CONSTIPAT ION active Not Available Not Available No t Available ibuprofen 600 mg tablet TAKE 1 TABLET BY MOUTH THREE TIMES DAILY NEEDED FOR PAIN active Not Available Not Available No t Available drospirenon e 3 mg-ethinyl estradiol 0.02 mg tablet TAKE 1 TABLET BY MOUTH DAILY active Not Available Not Available No t Available Vitals None Recorded Social History None recorded. Functional Status None recorded. Mental Status None recorded. Family History Nothing Reported. Medical History No medical history recorded. Gynecological HistoryNo gynecological history recorded. Obstetrics History GPAL:G 0 P 0 0 0 0 Past Encounters Encounter ID Performer Location Encounter Start Date Encounter Closed Date Diagnosis/Indication Diagnosis SNOMED-CT Code Diagnosis ICD10 Code Diagnosis IMO Codes Diagnosis Note [id number] Yanira Esparza CNM [facility] [address] [place] [address] 05/22/2025 14:29:52 05/22/2025 17:34:25 Health Concerns Section Related Observation LastModified by Organization Detai ls LastModified Time None Recorded Concern Status LastModified by Organization Details LastModified Time None Recorded Advance Directives Directive None Recorded Payers Insurance Date Sequence Insurance Name Policy Number Policy Shipley Covered Member ID Shipley Member ID Guarantor Name 05/22/2025 1 [facility] - DOS ON OR AFTER 21 (MEDICAID REPLACEMENT - HMO) Tammy Linda [id number] Tammy Linda OBGyn Episode No OBEpisode recorded.
--- OUTSIDE RECORDS SUMMARY | 2025-08-23 16:24 | XMS_ITS | Clinical Summary ---
Author Organization [facility] Address [address] [place] [address], [address] Care Team Providers Care Liquor Rectifier Name Role Phone Unavailable Primary Care Provider Unavailabl e Social History Tobacco Use Types Packs/Day Years Used Date Smoking Tobacco: Never Assessed Comments Unknown Sex and Gender Information Value Date Recorded Sex Assigned at Not on file Legal Sex Female 11:34 AM PDT Gender Identity Not on file Sexual Orientation Not on file Plan of Treatment Not on file
[2025-08-23 19:44] LABS: Hematocrit 46.5 % (37.0-47.0); Hemoglobin 15.0 g/dL (12.0-15.0); Immature Granulocyte Percent A 0.4 % (0-0.5); Lymphocytes Absolute Auto 1.94 K/mm3 (0.9-3.2); Mean Corpuscular HGB Conc 32.3 g/dl (32-36); Mean Corpuscular Hemoglobin 28.4 pg (26-34); Mean Corpuscular Volume 87.9 fl (80-100); Nucleated Red Blood Cells Absolute Auto 0.000 K/mm3 (0.0-0.012); Nucleated Red Blood Cells Perc 0.0 % (0.0-0.2); Platelet Count Result 359 k/mm3 (150-375); Red Blood Count 5.29 M/mm3 (4.2-5.4); White Blood Count 9.9 K/mm3 (4.5-10.0)
[2025-08-23 19:45] LABS: Alanine Aminotransferase 20 U/L (6-35); Albumin Level 4.8 g/dL (3.5-5.1); Alkaline Phosphatase 83 U/L (38-126); Anion Gap 9 mmol/L (4-12); Aspartate Amino Transferase 35 U/L (14-36); Bilirubin,Total 0.9 mg/dL (0.2-1.3); Blood Urea Nitrogen 10 mg/dL (7-17); Calcium 9.8 mg/dL (8.4-10.2); Carbon Dioxide 25 mmol/L (22-30); Chloride 105 mmol/L (98-107); Cholesterol 153 mg/dL (0-200); Estimated Glomerular Filt Rate > 60; Glucose 97 mg/dL (65-110); HDL Direct 89 mg/dL; Potassium 4.2 mmol/L (3.4-5.0); Sodium 139 mmol/L (137-145); Total Protein 8.8 g/dL (6.3-8.2); Triglycerides < 30 mg/dL (<150)
[2025-08-23 20:23] LABS: Thyroid Stimulating Hormone 0.844 uIU/mL (0.465-4.680)
[2025-08-23 21:06] LABS: Hemoglobin A1C 5.5 % (<5.7)
== END 2025-08-23 13:51 | disposition home or self-care (01) ==
LOC: ANHGOSHLAB 13:51
PROVIDERS: PCP Student in an Organized Health Care Education/Training Program; Visit Provider Student in an Organized Health Care Education/Training Program
DX: Z13.220 Encounter for screening for lipoid disorders (principal); Z13.29 Encounter for screening for other suspected endocrine disorder; E66.811 Obesity, class 1; Z13.0 Encounter for screening for diseases of the blood and blood-forming organs and certain disorders involving the immune mechanism
CPT/HCPCS: 36415; 80053; 80061; 83036; 84443; 85025; 87491; 87591